=== PATIENT | male | born 1945 | race African-American/Black ===

== ENCOUNTER 2016-09-03 15:21 | Inpatient (IN) ==
[2016-09-03] MEDS ORDERED: SODIUM CHLORIDE 0.9% 500 ML IV STA (16:20)
--- NOTE | 2016-09-03 16:37 | XRay Report ---
History: Shortness of breath and fever Date: 09/03/2016 Study: Chest x-ray AP portable Comparison exam: Chest x-ray March 30, 2016 There is continued mild cardiomegaly. The mediastinal contours are stable. A left subclavian multiple lead transvenous pacemaker device is generally intact. The pulmonary vasculature is not engorged. The exam was performed in shallow aspiration with some mild subsegmental atelectasis in the lung bases. There is no cici pneumonia or gross pleural effusion. The osseous structures are unchanged. Impression: Mild cardiomegaly. Shallow breath with mild subsegmental atelectasis in the lung bases. No definite acute process compared to the previous study PROCEDURE INTERPRETED AT [facility] DEPARTMENT OF RADIOLOGY Final Report Signed by: Dr. Viviane Luis
--- NOTE | 2016-09-03 17:06 | EKG Report ---
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
[2016-09-03 17:34] LABS: Basophils # 0.1 10*3/uL (0.0-0.2); Basophils % 0.7 % (0.0-0.8); Eosinophils # 0.2 10*3/uL (0.0-0.87); Eosinophils % 2.3 % (0.00-10.9); Hematocrit 32.1 VOL% (42.0-52.0); Hemoglobin 11.1 GM/DL (14.0-18.0); Immature Granulocytes % 0.7 %; Immature Granulocytes Absolute 0.05 #; Lymphocytes # 2.1 10*3/uL (1.4-4.0); Lymphocytes % 28.4 % (21.2-54.2); Mean Corpuscular HGB Conc 34.6 GM/DL (32-36); Mean Corpuscular Hemoglobin 30 PG (27-34); Mean Platelet Volume 11.3 FL (9.6-12.0); Monocytes # 0.8 10*3/uL (0.11-0.8); Monocytes % 10.8 % (1.7-12.7); Neutrophils # 4.1 10*3/uL (1.4-7.4); Neutrophils % 57.1 % (38.7-73.9); Platelet Count 159 T/CUMM (130-400); Red Blood Count 3.69 MC/CUMM (3.8-5.5); Red Cell Distribution Width 12.9 % (9.3-17.3); White Blood Count 7.3 T/CUMM (4-12)
[2016-09-03 17:43] LABS: INR 1.5; PT Patient Result 16.1 SECS
[2016-09-03 18:07] LABS: Albumin 2.1 G/DL (3.4-5.0); Bilirubin,Total 1.3 MG/DL (0.2-1.0); Osmolality,Calculated 300.7 MOS/KG (273-304); Potassium 2.6 MMOL/L (3.5-5.1); Total Protein 7.7 G/DL (6.4-8.3)
--- NOTE | 2016-09-03 18:28 | Emergency Department Note ---
Ruddy Freed Brittany, am scribing for, and in the presence of, Jose Manuel Bosch MD 15:57. Danitza Freed Phillip K, MD, personally performed the services described in this documentation, ascribed by Jaleesa Fox in my presence, and it is both accurate and complete [id number] . Arrival - Arrival Chief Complaint: Weakness ED Nursing Triage Note: c/o weakness x2 days. states that patient has not been eating or drinking good. discharged 2 weeks ago for gastroenteritis. patient also having some abd pain Mode of Arrival: Stretcher Limitations: No Limitations Source: Patient, Family - History of Present Illness HPI Narrative: This is a 71 y/o male,who presents to the ED with c/o weakness which started 2 days ago. His states he has had a decreased PO Intake and low BP. He was D/ C two weeks ago for gastroperesis. She states pt had an upper scope in June and was placed on ABX for "a stomach infection". Pt has no other complaints/ pain in the ED at this time. Pt has a PMHx of NIDDM, HTN, cardiac dysrythmia, GOUT, GERD, gastroperesis, and arthritis. Pt has had a cardiac cath, vascular access device, abd surgery, and orthopedic surgery. Pt denies a family medical Hx. Pt denies a social Hx. Pt's PCP is Dr. Lainez Onset (ago): day(s) (Started 2 days ago) Consistency: constant Severity: moderate Allergies/Adverse Reactions: Allergies Allergy/AdvReac Type Severity Reaction Status Date / Time No Known Allergies Allergy Verified 03/30/16 14:24 Home Medications: Home Medications Medication Instructions Recorded Confirmed Type Cetirizine Tab [ZyrTEC Tab] 10 mg PO BEDTIME 03/30/16 08/10/16 History Entecavir 0.5 mg PO DAILY 03/30/16 08/10/16 History Ezetimibe [Zetia] 10 mg PO BEDTIME 03/30/16 08/10/16 History Febuxostat [Uloric] 80 mg PO BEDTIME 03/30/16 08/10/16 History Insulin Lispro [HumaLOG] See Protocol SUBCUT ACHS ml 04/06/16 08/10/16 Rx Apixaban [Eliquis] 5 mg PO DAILY 08/10/16 08/10/16 History Colchicine 0.6 mg PO DAILY W/BREAKFAST PRN 08/10/16 08/10/16 History Omeprazole 40 mg PO QAM 08/10/16 08/10/16 History Valsartan/Hydrochlorothiazide 1 each PO DAILY 08/10/16 08/10/16 History [Valsartan-Hctz 160-12.5 mg Tab] traMADol TAB [Ultram] 50 mg PO Q6H PRN #20 tablet 08/10/16 Rx Review of System - Review of System 12 point system: reviewed and no additional remarkable complaints except as stated - Review of System Constitutional: Present: weakness, other (Decreased PO Intake) Medical,Surgical,& Family Hx - Medical History Cardio: History of: Cardiac Dysrhythmia, Hypertension Endocrine: History of: Diabetes Mellitus (NIDDM) Rheumatology: History of;: Gout Gastrointestinal: History of: GERD, GI Problems (GASTROPERESIS) Musculoskeletal: History of: Musculoskeletal Problems (arthritis) - Surgical History Cardiac Surgeries: Sugical HX of: Cardiac Catheterization, Vascular Access Devices (pacemaker) Abdominal Surgeries: Surgical HX of: Abdominal Surgery ("colon") Orthopedic Surgeries: Surgical HX of;: Orthopedic Surgery - Family History Family History: Denies;: Family Stroke - Social History Smoking Status: Never smoker Frequency of Alcohol Use: None Type of Drug Use: None Exam Vital Signs: Vital Signs Temperature 98.3 F 09/03/16 15:21 Pulse Rate 87 09/03/16 15:21 Respiratory Rate 17 09/03/16 15:21 Blood Pressure 127/69 09/03/16 15:21 O2 Sat by Pulse Oximetry 98 09/03/16 15:21 - General General appearance: alert, in no apparent distress - Head Head exam: Present: atraumatic, normocephalic, normal inspection - Eye Eye exam: Present: normal appearance, PERRL, EOMI - ENT ENT exam: Present: mucous membranes dry - Neck Neck exam: Present: normal inspection, full ROM, trachea midline. Absent: tenderness - Chest Chest inspection: Present: normal inspection, symmetric chest wall rise. Absent : tenderness, rash, abscess - Respiratory Respiratory exam: Present: normal lung sounds bilaterally. Absent: respiratory distress - Cardiovascular Cardiovascular exam: Present: regular rate, normal rhythm, normal heart sounds - Abdominal Exam Abdominal exam: Present: soft, normal bowel sounds. Absent: distention, tenderness, guarding, rebound, rigidity - Extremities Exam Extremities exam: Present: normal capillary refill, other (Ulcer to the left foot) - Back Exam Back exam: Present: normal inspection, full ROM. Absent: tenderness, muscle spasm, rashes - Neurological Exam Neurological exam: Present: alert, oriented X3, CN II-XII intact. Absent: motor sensory deficit - Psychiatric Psychiatric exam: Present: normal affect, normal mood. Absent: depressed, agitated, anxious, manic - Skin Skin exam: Present: warm, dry, intact, normal color. Absent: rash, cyanosis, diaphoresis, erythema, pallor, mottled Course Course Narrative: Patient discussed with the hospitalist and we will admit for further evaluation. Results - Labs CBC & BMP: 09/03/16 17:01 09/03/16 17:01 Lab Results: I have reviewed the patients labs - EKG EKG results: interpreted by MAIDA (ventricular pacemaker rhythm) - Diagnostic Findings Procedure: Chest x-ray: report reviewed by me (poor inspiration but nothing acute.) Disposition Clinical Impression: Dehydration, Acute on chronic renal failure, Hypokalemia Case discussed with: patient, patient's family Disposition: Still a Patient Condition: Guarded Additional Instructions: Admit to the hospitalist.
[2016-09-03 18:33] LABS: Platelet Estimate Normal
[2016-09-03] MEDS ORDERED: GLUCAGON 1 MG VIAL IM PRN (18:35)
[2016-09-03] MEDS ORDERED: ZALEPLON 5 MG CAPSULE PO PRN (18:35)
[2016-09-03] MEDS ORDERED: DOCUSATE SODIUM 100 MG CAPSULE PO PRN (18:35)
[2016-09-03] MEDS ORDERED: ONDANSETRON 4 MG/2 ML VIAL IV PRN (18:35)
[2016-09-03] MEDS ORDERED: LACTULOSE 20 GM/30 ML UDCUP PO PRN (18:35)
[2016-09-03] MEDS ORDERED: DEXTROSE 50% 25 GM/50 ML VIAL IV PRN (18:35)
--- NOTE | 2016-09-03 19:07 | Hospitalist History & Physical ---
Assessment and Plan - Time spent with patient Time spent with patient: Greater than 30 minutes (due to assessment, plan and documentation.) (1) Acute on chronic renal failure Status: Acute Assessment and plan: hydrate consult nephrology monitored bed Current Visit: Yes (2) Dehydration Status: Acute Current Visit: Yes (3) Hypokalemia Status: Acute Current Visit: Yes (4) Decubital ulcer Status: Acute Current Visit: No Qualifiers: Pressure ulcer stage: stage II Qualified Code(s): L89.92 - Pressure ulcer of unspecified site, stage 2 (5) Gastroparesis Status: Acute Current Visit: No (6) Diabetes mellitus Status: Chronic Current Visit: No Qualifiers: Diabetes mellitus type: type 2 (7) Hypertension Status: Chronic Current Visit: No Qualifiers: Hypertension type: essential hypertension Qualified Code(s): I10 - Essential (primary) hypertension (8) Weakness Status: Chronic Current Visit: No History of Present Illness Chief complaint: weakness History of present illness: Mr. Almanza is a 71 year old male who is brought to the ED today by his for weakness x 2 days. She gives all of the history. She states that he has not had a good appetite the past few days. He has a hx of gastroparesis, but his lack of appetite is worse. mentions that "all he wants to do is sleep" . Denies any nausea or vomiting. He is diabetic. He has a wound to his left foot and a sacral decubitus per his . 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 His potassium is low at 2.6; Creatinine is 5.4 GFR 17. Last recorded labs were normal. states that he does see Dr. Ruiz. We will ask to see while he is here as well. We will admit, replace his potassium and have renal see. Further plan and addendum to follow by Dr. Andreas Bonilla. Home Medications Medication Instructions Recorded Confirmed Type Cetirizine Tab [ZyrTEC Tab] 10 mg PO BEDTIME 03/30/16 08/10/16 History Entecavir 0.5 mg PO DAILY 03/30/16 08/10/16 History Ezetimibe [Zetia] 10 mg PO BEDTIME 03/30/16 08/10/16 History Febuxostat [Uloric] 80 mg PO BEDTIME 03/30/16 08/10/16 History Insulin Lispro [HumaLOG] See Protocol SUBCUT ACHS ml 04/06/16 08/10/16 Rx Apixaban [Eliquis] 5 mg PO DAILY 08/10/16 08/10/16 History Colchicine 0.6 mg PO DAILY W/BREAKFAST PRN 08/10/16 08/10/16 History Omeprazole 40 mg PO QAM 08/10/16 08/10/16 History Valsartan/Hydrochlorothiazide 1 each PO DAILY 08/10/16 08/10/16 History [Valsartan-Hctz 160-12.5 mg Tab] traMADol TAB [Ultram] 50 mg PO Q6H PRN #20 tablet 08/10/16 Rx Allergies Allergy/AdvReac Type Severity Reaction Status Date / Time No Known Allergies Allergy Verified 03/30/16 14:24 Medical,Surgical,& Family Hx - Medical History Cardio: History of: Cardiac Dysrhythmia, Hypertension Endocrine: History of: Diabetes Mellitus (IDDM), Diabetes Mellitus (NIDDM) Rheumatology: History of;: Gout Gastrointestinal: History of: GERD, GI Problems (GASTROPERESIS) Musculoskeletal: History of: Musculoskeletal Problems (arthritis) Other: History of: Miscellaneous Medical Problems (hepatitis B--nondetectable) - Surgical History Cardiac Surgeries: Sugical HX of: Cardiac Catheterization, Vascular Access Devices (pacemaker) Abdominal Surgeries: Surgical HX of: Abdominal Surgery ("colon"), Cholecystectomy Orthopedic Surgeries: Surgical HX of;: Orthopedic Surgery - Family History Family History: Denies;: Family Stroke - Social History Smoking Status: Never smoker Frequency of Alcohol Use: None Type of Drug Use: None Marital Status: Lives With:: Spouse Functional capacity: bed bound ROS unobtainable: due to mental status Exam - Constitutional Vitals: Period Temp Pulse Resp BP Sys/Wick Pulse Ox Last 24 Hr 98.3 F 87 17 127/69 98 General appearance: no acute distress, over weight - Head Head exam: Present: normal inspection, normocephalic - Eye Eye exam: Present: EOMI. Absent: scleral icterus Pupils: Present: TRACEY, normal accommodation - ENT ENT exam: Present: normal exam, normal oropharynx - Neck Neck exam: Present: normal inspection. Absent: lymphadenopathy - Respiratory Respiratory exam: Present: clear to auscultation bilaterally. Absent: wheezes - Cardiovascular Cardiovascular exam: Present: regular rate and rhythm. Absent: carotid bruit - GI/Abdominal GI/Abdominal exam: Present: normal bowel sounds, soft. Absent: tenderness - Extremities Exam Extremities exam: Present: other (wrap to left foot - wound). Absent: edema - Back Exam Back exam: Present: normal inspection. Absent: muscle spasm - Neurological Exam Neurological exam: Present: altered - Psychiatric Psychiatric exam: Present: flat affect - Skin Skin exam: Present: normal color, warm, dry, other (wound to left foot, sacral area. ) Results - Labs CBC & BMP: 09/03/16 17:01 09/03/16 17:01 Lab Results: I have reviewed the past 24 hour labs Quality Measures - VTE Contraindication to Pharmacological VTE Prophylaxis: Already on Theraputic Agent , No Prophylaxis Needed
[2016-09-03] MEDS: INSULIN LISPRO 100 UNIT/ML SUBCUT SCH (21:02)
[2016-09-03] MEDS: SODIUM CHLORIDE 0.9% 1,000 ML IV SCH (21:08)
[2016-09-03] MEDS: POTASSIUM CHLORIDE RIDER 10 MEQ in PREMIX 1 EACH IV SCH (22:57)
[2016-09-04] MEDS: POTASSIUM CHLORIDE RIDER 10 MEQ in PREMIX 1 EACH IV SCH ×5 (01:04→09:58)
[2016-09-04 05:14] LABS: Basophils % 0.6 % (0.0-0.8); Eosinophils # 0.2 10*3/uL (0.0-0.87); Eosinophils % 2.9 % (0.00-10.9); Hematocrit 28.6 VOL% (42.0-52.0); Hemoglobin 9.7 GM/DL (14.0-18.0); Immature Granulocytes % 0.6 %; Immature Granulocytes Absolute 0.04 #; Lymphocytes % 28.2 % (21.2-54.2); Mean Corpuscular HGB Conc 33.9 GM/DL (32-36); Mean Corpuscular Hemoglobin 30 PG (27-34); Mean Corpuscular Volume 87.2 FL (87-102); Mean Platelet Volume 11.3 FL (9.6-12.0); Monocytes # 0.8 10*3/uL (0.11-0.8); Neutrophils # 3.9 10*3/uL (1.4-7.4); Neutrophils % 55.7 % (38.7-73.9); Platelet Count 141 T/CUMM (130-400); Red Blood Count 3.28 MC/CUMM (3.8-5.5); Red Cell Distribution Width 12.7 % (9.3-17.3)
[2016-09-04 05:42] LABS: Eosinophils 3 % (0-10); Lymphocytes 32 % (20-55); Platelet Estimate Normal; Segmented Neutrophils 54 % (50-85); Total Cells Counted 100
[2016-09-04 05:53] LABS: Albumin 1.8 G/DL (3.4-5.0); Bilirubin,Total 1.2 MG/DL (0.2-1.0); Calcium 8.7 MG/DL (8.5-10.1); Osmolality,Calculated 305.4 MOS/KG (273-304); Potassium 2.7 MMOL/L (3.5-5.1); Total Protein 6.8 G/DL (6.4-8.3)
[2016-09-04] MEDS ORDERED: traMADol 50 MG TABLET PO PRN (06:57)
--- NOTE | 2016-09-04 08:58 | Nephrology Consult Note ---
History of Present Illness Chief complaint: increased BUN/creatinine creatinine History of present illness: Mr. Almanza is a 71 year old male who I follow in the outpatient setting for chronic kidney disease. The patient presented to the hospital yesterday for decreased by mouth intake. I saw the patient about 10 days ago in the office at that time his creatinine was 2.6 mg/dL. Review of his labs from the past year have ranged from 1.4 mg/dL to 2 mg/dL. The patient since February 2016 has had a fairly rapid decline in his health status. The patient during that time slowly started to eat less per his . The patient was admitted to the hospital and felt to have diabetic gastroparesis. He was started on Reglan for this and did well for about a week or so but then developed a fairly abrupt change in his mental state as well as his motor function. Since that time the patient has been deteriorating with decreased by mouth intake and increased weight loss and decreased mental function and interactions. The patient does have a history of colon cancer cancer in 2012 with a resection at that time. He was felt to have been cured and did not require any chemotherapy. The patient recently had an upper endoscopy done at [facility] and was found to have what sounds like H. pylori bacterial infection in his stomach and has been getting treatment with antibiotics. The patient has also been getting antibiotics for some blistering in his left foot. 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 The history is taken from the patient's as the patient is unable to contribute to the history due to his medical condition. Review of systems and family history unable be obtained due to patient's medical condition PE: General: in no acute distress Eyes: Pupils are round and reactive, conjunctivae are clear ENT: Nose is clear, O/P is benign Neck: Supple, no thyromegaly Lymphatics: No cervical, supraclavicular or axillary adenopathy Heart: Regular rate and rhythm, no edema Lungs: Clear to auscultation anteriorly, chest expansion symmetric Abdomen: Soft, normoactive bowel sounds, no hepatomegaly Musculoskeletal: No joint erythema or effusions or joint asymmetry Skin: Normal turgor, normal hydration, no rash Neuro/Psych: Alert and cooperative with fair insight Home Medications Medication Instructions Recorded Confirmed Type Cetirizine Tab [ZyrTEC Tab] 10 mg PO BEDTIME 03/30/16 09/03/16 History Entecavir 0.5 mg PO DAILY 03/30/16 09/03/16 History Ezetimibe [Zetia] 10 mg PO BEDTIME 03/30/16 09/03/16 History Febuxostat [Uloric] 80 mg PO BEDTIME 03/30/16 09/03/16 History Insulin Lispro [HumaLOG] See Protocol SUBCUT ACHS ml 04/06/16 09/03/16 Rx Apixaban [Eliquis] 5 mg PO DAILY 08/10/16 09/03/16 History Colchicine 0.6 mg PO DAILY W/BREAKFAST PRN 08/10/16 09/03/16 History Omeprazole 40 mg PO QAM 08/10/16 09/03/16 History traMADol TAB [Ultram] 50 mg PO Q6H PRN #20 tablet 08/10/16 09/03/16 Rx Clarithromycin 500 mg PO BID 09/03/16 09/03/16 History Minocycline [Minocin] 100 mg PO BID 09/03/16 09/03/16 History Allergies Allergy/AdvReac Type Severity Reaction Status Date / Time No Known Allergies Allergy Verified 03/30/16 14:24 Medical,Surgical,& Family Hx - Medical History Cardio: History of: Cardiac Dysrhythmia, Hypertension Endocrine: History of: Diabetes Mellitus (IDDM), Diabetes Mellitus (NIDDM) Rheumatology: History of;: Gout Gastrointestinal: History of: GERD, GI Problems (GASTROPERESIS) Musculoskeletal: History of: Musculoskeletal Problems (arthritis) Other: History of: Miscellaneous Medical Problems (hepatitis B--nondetectable) - Surgical History Cardiac Surgeries: Sugical HX of: Cardiac Catheterization, Vascular Access Devices (pacemaker) Abdominal Surgeries: Surgical HX of: Abdominal Surgery ("colon"), Cholecystectomy Orthopedic Surgeries: Surgical HX of;: Orthopedic Surgery - Family History Family History: Denies;: Family Stroke - Social History Smoking Status: Never smoker Frequency of Alcohol Use: None Type of Drug Use: None Exam - Vital Signs Vital signs: Period Temp Pulse Resp BP Sys/Wick Pulse Ox Last 24 Hr 96.3 F-98.6 F 81-85 16-24 97-108/58-63 97-100 Results - Labs CBC & BMP: 09/04/16 04:09 09/04/16 04:09 Assessment and Plan (1) Acute on chronic renal failure Status: Acute Assessment and plan: I agree with IV fluids as ordered. I mentioned to the patient's that a PEG feeding tube may ultimately be required. Current Visit: Yes (2) History of hypertension Status: Acute Assessment and plan: This patient has been having decreased blood pressure lately per the patient's , she has been holding his Diovan on an diuretic Current Visit: Yes (3) Dehydration Status: Acute Current Visit: Yes (4) Hypokalemia Status: Acute Assessment and plan: Continue IV replacement of potassium Current Visit: Yes (5) Chronic hepatitis B Status: Acute Assessment and plan: Patient is on chronic treatment for this with Baraclude Current Visit: No (6) Gastroparesis Status: Acute Current Visit: No (7) Diabetes mellitus Status: Chronic Current Visit: No Qualifiers: Diabetes mellitus type: type 2 (8) Dementia Status: Acute Assessment and plan: This patient's had a fairly rapid decline in his mental status over the past 8 months or so. 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 I'm not sure if the Reglan would cause such a prolonged dementia after a 10 day exposure as he had 6-8 months ago. Current Visit: Yes (9) Weight loss Status: Acute Assessment and plan: With his history of colon cancer and oriented that he may have a recurrence of this causing some weight loss. However this may be more result of his progressive dementia. I'll review his previous hospitalization for test that may have screened for this. Current Visit: Yes
[2016-09-04] MEDS: INSULIN LISPRO 100 UNIT/ML SUBCUT SCH ×4 (09:05→21:48)
[2016-09-04] MEDS: PANTOPRAZOLE 40 MG TABLET PO SCH (09:09)
[2016-09-04] MEDS: APIXABAN 5 MG TABLET PO SCH (09:09)
[2016-09-04] MEDS: CLARITHROMYCIN 500 MG TABLET PO SCH ×2 (09:11→21:47)
[2016-09-04] MEDS: SODIUM CHLORIDE 0.9% 1,000 ML IV SCH ×2 (09:58→17:20)
--- NOTE | 2016-09-04 10:54 | Hospitalist Progress Note ---
Assessment and Plan (1) Acute on chronic renal failure Status: Acute Assessment and plan: Mr. Almanza is admitted to the hospital with acute worsening of chronic renal failure. He has flat affect and apparent brain injury consistent with postconcussive syndrome. The patient seemingly worsened after being treated for H. pylori infection. We will continue with IV hydration and have requested a consultation with Dr. Ruiz and with Dr. Duran. I reviewed the plan of care with the patient's at the bedside. Current Visit: Yes (2) Diabetes mellitus Status: Chronic Current Visit: No Qualifiers: Diabetes mellitus type: type 2 (3) Chronic kidney disease Status: Chronic Current Visit: No (4) Chronic hepatitis B Status: Acute Current Visit: No (5) Dementia Status: Acute Current Visit: Yes (6) Weight loss Status: Acute Current Visit: Yes Hospitalist: Subjective Interval history: Mr. Almanza remains mute today. He has taken a few liquids but not enough to sustain himself. The patient continues on hydration. Creatinine is still elevated above his baseline of 2.6. Exam - Constitutional Vitals: Period Temp Pulse Resp BP Sys/Wick Pulse Ox Last 24 Hr 96.3 F-98.6 F 81-85 16-24 97-108/58-63 97-100 Exam: Constitutional System: Mild distress. No tremulousness. The patient is diaphoretic Head: Normocephalic, atraumatic. Ears, Nose and Throat System: No evidence of Otitis or Mastoiditis. No epistaxis or discharge Eyes System: Pupils equal, round, and reactive. Extraocular muscles intact. Neck: Supple, without adenopathy, No jugular venous distention. No thyromegaly , neck mass, or prior surgery apparent. Respiratory System: Chest clear to auscultation. Cardiovascular System: Heart with regular rate and rhythm. No murmur. GI System: Abdomen soft, nontender. Normoactive bowel sounds present. Musculoskeletal System: limbs with no pedal edema. Decreased distal pulses. Wound on left foot Neurological System: No discernable sensory deficit. Psychiatric System: Conversation is mute Results - Labs CBC & BMP: 09/04/16 04:09 09/04/16 04:09 Lab Results: I have reviewed the past 24 hour labs Quality Measures - VTE Contraindication to Pharmacological VTE Prophylaxis: Already on Theraputic Agent , No Prophylaxis Needed
[2016-09-04] MEDS: DESITIN 4OZ/NYSTATIN 15 GRAM MIXTURE PASTE TOP SCH ×2 (13:55→21:47)
--- NOTE | 2016-09-04 15:11 | Gastrointestinal Consult Note ---
Assessment and Plan (1) Malnutrition Status: Acute Assessment and plan: Progressive decline in mental function resulting in poor p.o. intake and malnutrition. This is most recently culminated in severe dehydration and renal insufficiency. I have discussed with the patient's family that at this point will continue with IV hydration and see how his mental status improves and if possible repeat speech therapy evaluation next week to see if we can tell his risk of aspiration. Potential need for PEG tube placement has been discussed with her started this and make can be more problematic in the face of gastroparesis but often with the use of liquids nutrition done in continuous fashion he should be able to tolerate this. Hopefully his mental status will improve with hydration to the point this is not required. I will check back on Wednesday call coverage if needed over the weekend. Current Visit: Yes History of Present Illness Chief complaint: A aphasia with dehydration and malnutrition History of present illness: Mr. Almanza is a 71 year old male He was admitted with progressive decline in mental status with acute dehydration and worsening of renal insufficiency. Patient's states for the past several months he has had decreased oral intake. He apparently was noted to have some difficulty swallowing a few weeks ago he was seen at [facility] where he had reportedly a speech therapy evaluation was told it was normal and an upper endoscopy done with findings of H. pylori. Initiation of therapy with antibiotics were started. No report of any stricture was mentioned. He has had no history to suggest intestinal obstruction. He has previously been diagnosed with gastroparesis and initial trial of Reglan was not tolerated due to mental status changes and this was discontinued several months ago. We are asked to see him now regarding his loss of appetite difficulty swallowing with resulting dehydration and malnutrition. Home Medications Medication Instructions Recorded Confirmed Type Cetirizine Tab [ZyrTEC Tab] 10 mg PO BEDTIME 03/30/16 09/03/16 History Entecavir 0.5 mg PO DAILY 03/30/16 09/03/16 History Ezetimibe [Zetia] 10 mg PO BEDTIME 03/30/16 09/03/16 History Febuxostat [Uloric] 80 mg PO BEDTIME 03/30/16 09/03/16 History Insulin Lispro [HumaLOG] See Protocol SUBCUT ACHS ml 04/06/16 09/03/16 Rx Apixaban [Eliquis] 5 mg PO DAILY 08/10/16 09/03/16 History Colchicine 0.6 mg PO DAILY W/BREAKFAST PRN 08/10/16 09/03/16 History Omeprazole 40 mg PO QAM 08/10/16 09/03/16 History traMADol TAB [Ultram] 50 mg PO Q6H PRN #20 tablet 08/10/16 09/03/16 Rx Clarithromycin 500 mg PO BID 09/03/16 09/03/16 History Minocycline [Minocin] 100 mg PO BID 09/03/16 09/03/16 History Allergies Allergy/AdvReac Type Severity Reaction Status Date / Time No Known Allergies Allergy Verified 03/30/16 14:24 Medical,Surgical,& Family Hx - Medical History Cardio: History of: Cardiac Dysrhythmia, Hypertension Endocrine: History of: Diabetes Mellitus (IDDM), Diabetes Mellitus (NIDDM) Rheumatology: History of;: Gout Gastrointestinal: History of: GERD, GI Problems (GASTROPERESIS) Musculoskeletal: History of: Musculoskeletal Problems (arthritis) Other: History of: Miscellaneous Medical Problems (hepatitis B--nondetectable) - Surgical History Cardiac Surgeries: Sugical HX of: Cardiac Catheterization, Vascular Access Devices (pacemaker) Abdominal Surgeries: Surgical HX of: Abdominal Surgery ("colon"), Cholecystectomy Orthopedic Surgeries: Surgical HX of;: Orthopedic Surgery - Family History Family History: Denies;: Family Stroke - Social History Smoking Status: Never smoker Frequency of Alcohol Use: None Type of Drug Use: None ROS unobtainable: due to mental status Exam - Constitutional Vitals: Period Temp Pulse Resp BP Sys/Wick Pulse Ox Last 24 Hr 96.3 F-98.6 F 81-85 16-24 97-110/50-63 94-100 General appearance: normal weight, no acute distress - Head Head exam: Present: normal inspection, normocephalic, atraumatic - Eye Eye exam: Present: EOMI. Absent: conjunctival injection, scleral icterus Pupils: Present: TRACEY. Absent: dilated - ENT ENT exam: Present: normal oropharynx - Neck Neck exam: Absent: lymphadenopathy, thyromegaly - Respiratory Respiratory exam: Present: clear to auscultation bilaterally. Absent: accessory muscle use, rales - Cardiovascular Cardiovascular exam: Present: regular rate and rhythm. Absent: systolic murmur - GI/Abdominal GI/Abdominal exam: Present: soft. Absent: ascites, distended, mass, tenderness - Extremities Exam Extremities exam: Absent: edema - Neurological Exam Neurological exam: Present: other (Noncommunicative and will not follow commands ) - Skin Skin exam: Present: warm, dry Results - Labs CBC & BMP: 09/04/16 04:09 09/04/16 04:09 Lab Results: I have reviewed the past 24 hour labs Quality Measures - VTE Contraindication to Pharmacological VTE Prophylaxis: Already on Theraputic Agent , No Prophylaxis Needed
[2016-09-04] MEDS: FEBUXOSTAT 80 MG TABLET PO SCH (21:47)
[2016-09-05] MEDS: SODIUM CHLORIDE 0.9% 1,000 ML IV SCH ×4 (00:49→11:46)
[2016-09-05 05:06] LABS: Basophils % 0.6 % (0.0-0.8); Eosinophils # 0.3 10*3/uL (0.0-0.87); Eosinophils % 4.2 % (0.00-10.9); Hematocrit 26.4 VOL% (42.0-52.0); Hemoglobin 9.4 GM/DL (14.0-18.0); Immature Granulocytes % 0.3 %; Immature Granulocytes Absolute 0.02 #; Lymphocytes # 1.4 10*3/uL (1.4-4.0); Lymphocytes % 21.7 % (21.2-54.2); Mean Corpuscular HGB Conc 35.6 GM/DL (32-36); Mean Corpuscular Hemoglobin 30 PG (27-34); Mean Corpuscular Volume 85.2 FL (87-102); Mean Platelet Volume 11.8 FL (9.6-12.0); Monocytes # 0.7 10*3/uL (0.11-0.8); Monocytes % 10.9 % (1.7-12.7); Neutrophils % 62.3 % (38.7-73.9); Platelet Count 128 T/CUMM (130-400); Red Cell Distribution Width 13.3 % (9.3-17.3); White Blood Count 6.5 T/CUMM (4-12)
[2016-09-05 05:32] LABS: Albumin 1.7 G/DL (3.4-5.0); Bilirubin,Total 1.7 MG/DL (0.2-1.0); Calcium 8.1 MG/DL (8.5-10.1); Potassium 2.9 MMOL/L (3.5-5.1); Total Protein 6.1 G/DL (6.4-8.3)
[2016-09-05 05:50] LABS: Platelet Estimate Normal
[2016-09-05] MEDS: CLARITHROMYCIN 500 MG TABLET PO SCH (09:05)
[2016-09-05] MEDS: APIXABAN 5 MG TABLET PO SCH (09:05)
[2016-09-05] MEDS: INSULIN LISPRO 100 UNIT/ML SUBCUT SCH ×4 (09:05→20:51)
[2016-09-05] MEDS: PANTOPRAZOLE 40 MG TABLET PO SCH (09:07)
[2016-09-05] MEDS: DESITIN 4OZ/NYSTATIN 15 GRAM MIXTURE PASTE TOP SCH ×2 (09:07→20:42)
[2016-09-05] MEDS ORDERED: POTASSIUM CHLORIDE RIDER 10 MEQ in PREMIX 1 EACH IV PRN (09:25)
--- NOTE | 2016-09-05 10:01 | Hospitalist Progress Note ---
Assessment and Plan (1) Acute worsening of stage 3 chronic kidney disease Status: Acute Current Visit: Yes (2) Decubitus ulcer of sacral region, unstageable Status: Acute Current Visit: Yes (3) Decubitus ulcer, heel, left, unstageable Status: Acute Current Visit: Yes (4) Dementia Status: Acute Current Visit: Yes (5) Protein-calorie malnutrition, mild Status: Acute Current Visit: Yes (6) Deep venous thrombosis of right upper extremity Status: Acute Current Visit: Yes (7) Functional quadriplegia Status: Acute Current Visit: Yes (8) Chronic hepatitis B Status: Acute Assessment and plan: Plan: 09/05: Check blood and urine cultures, as the reports a recent UTI as well as problems with urinary retention in the past. May be worth checking a renal ultrasound. We'll hold his Eliquis in anticipation of possible PEG tube next week. We'll consult surgery regarding his left heel wound and sacral decubitus wound. Once he is more awake weakness swallow study, if he is able to fully participate. Continue hydration and follow renal function, slightly improved from yesterday. Current Visit: No Hospitalist: Subjective Interval history: Mr. Almanza continues to be lethargic but arousable. According to his who provides all the history he is "not that much different over the last few days." She states last time he was ambulating with a walker was in March and since then he's had physical and cognitive decline such that he is now bedbound and dependent on transfers. He appears to have a left heel decubitus ulcer as well as a sacral decubitus ulcer and apparently is being followed by Dr. Martinez from [place] according to the . She states he had a recent UTI, no fever no nausea or vomiting. He is able to take some liquids and ensure without difficulty. Exam - Constitutional Vitals: Period Temp Pulse Resp BP Sys/Wick Pulse Ox Last 24 Hr 97.4 F-99.0 F 82-87 16-24 94-110/50-61 93-100 Exam: EXAM: CONSTITUTIONAL: Chronically ill-appearing, non toxic, NAD HEENT: NC, AT, OP benign, TRACEY, EOMI CV: RRR no m/g/r, device pocket benign RESP: clear B/L, no w/r/r GI: abd soft, NT, ND, +bowel sounds INTEGUMENTARY: no rash; unstageable sacral decubitus ulcer with scant drainage and surrounding mild macerated red tissue EXTREMITIES: Left lower extremity heel ulcer with large black eschar weak pedal pulses NEURO: no focal deficits PSYCH: Consistent with baseline dementia Results - Labs CBC & BMP: 09/05/16 03:40 09/05/16 03:40 Lab Results: I have reviewed the past 24 hour labs Quality Measures - VTE Contraindication to Pharmacological VTE Prophylaxis: Already on Theraputic Agent , No Prophylaxis Needed
--- NOTE | 2016-09-05 10:25 | Nephrology Progress Note ---
Nephrology - PN: Subj Interval history: Patient was nonverbal with me today. Physical exam general patient's chronically ill-appearing, heart is regular rate and rhythm, he has no pitting edema Lungs are clear to auscultation anteriorly, abdomen is soft with positive bowel sounds Assessment/plan 1. Acute renal failure-patient's creatinine is 5.1 mg/dL this is improved from around 5.4 mg/dL yesterday we'll continue his IV fluids 2. Malnutrition-patient's albumins around 1.7, hopefully as we rehydrate him he 'll start to eat better however he may ultimately require a PEG tube as outlined in Dr. Duran's note 3. Diabetes mellitus we'll continue his present hypoglycemic therapy 4. Dementia 5. Anemia 6. Metabolic acidosis I'm going to add some bicarbonate to his IV fluids 7. Hypokalemia I'm going to add some potassium to his IV fluids. Exam (PN)-Nephrology - Vital Signs Vital signs: Period Temp Pulse Resp BP Sys/Wick Pulse Ox Last 24 Hr 97.4 F-99.0 F 82-87 16-24 94-110/50-61 93-100 - Lab 09/05/16 03:40 09/05/16 03:40 Most recent lab results Calcium 8.1 MG/DL (8.5-10.1) L 09/05/16 03:40 Assessment and Plan (1) Acute on chronic renal failure Status: Acute Assessment and plan: I agree with IV fluids as ordered. I mentioned to the patient's that a PEG feeding tube may ultimately be required. Current Visit: Yes (2) History of hypertension Status: Acute Assessment and plan: This patient has been having decreased blood pressure lately per the patient's , she has been holding his Diovan on an diuretic Current Visit: Yes (3) Dehydration Status: Acute Current Visit: Yes (4) Hypokalemia Status: Acute Assessment and plan: Continue IV replacement of potassium Current Visit: Yes (5) Chronic hepatitis B Status: Acute Assessment and plan: Patient is on chronic treatment for this with Baraclude Current Visit: No (6) Gastroparesis Status: Acute Current Visit: No (7) Diabetes mellitus Status: Chronic Current Visit: No Qualifiers: Diabetes mellitus type: type 2 (8) Dementia Status: Acute Assessment and plan: This patient's had a fairly rapid decline in his mental status over the past 8 months or so. He apparently saw a neurologist in [place] related to the dementia is seen in [employer]. I'm not sure if the Reglan would cause such a prolonged dementia after a 10 day exposure as he had 6-8 months ago. Current Visit: Yes (9) Weight loss Status: Acute Assessment and plan: With his history of colon cancer and oriented that he may have a recurrence of this causing some weight loss. However this may be more result of his progressive dementia. I'll review his previous hospitalization for test that may have screened for this. Current Visit: Yes
[2016-09-05] MEDS: PANTOPRAZOLE 40 MG VIAL IV SCH (11:33)
[2016-09-05] MEDS: SODIUM BICARB INJ 50 MEQ, POTASSIUM CHLORIDE INJ 20 MEQ in SODIUM CHLORIDE 0.45% 1,000 ML IV SCH ×3 (11:52→20:42)
--- NOTE | 2016-09-05 14:35 | General Surgery Consult Note ---
Assessment and Plan (1) Diabetic foot infection Status: Acute Assessment and plan: Impression: Left lower extremity diabetic ulcers, pressure decubitus ulcer, and diabetic infection the left second toe. Plan: The left second toe is obviously infected and unsalvageable. I have recommended amputation in the operating room. At the same time we could debride his other ulcers as they're not going to heal with all of the nonviable tissue currently present. The is going to think about it and let us know in the morning. Current Visit: Yes History of Present Illness Chief complaint: consult for ulcers History of present illness: Mr. Almanza is a 71 year old male admitted with dehydration and lethargy. I have been consult did to evaluate his left lower extremity and sacral ulcers. History obtained from the patient's . She states they are under the care of Dr. Martinez at [facility]. They saw him last week and according to her he told them to keep the areas clean. Home Medications Medication Instructions Recorded Confirmed Type Cetirizine Tab [ZyrTEC Tab] 10 mg PO BEDTIME 03/30/16 09/03/16 History Entecavir 0.5 mg PO DAILY 03/30/16 09/03/16 History Ezetimibe [Zetia] 10 mg PO BEDTIME 03/30/16 09/03/16 History Febuxostat [Uloric] 80 mg PO BEDTIME 03/30/16 09/03/16 History Insulin Lispro [HumaLOG] See Protocol SUBCUT ACHS ml 04/06/16 09/03/16 Rx Apixaban [Eliquis] 5 mg PO DAILY 08/10/16 09/03/16 History Colchicine 0.6 mg PO DAILY W/BREAKFAST PRN 08/10/16 09/03/16 History Omeprazole 40 mg PO QAM 08/10/16 09/03/16 History traMADol TAB [Ultram] 50 mg PO Q6H PRN #20 tablet 08/10/16 09/03/16 Rx Clarithromycin 500 mg PO BID 09/03/16 09/03/16 History Minocycline [Minocin] 100 mg PO BID 09/03/16 09/03/16 History Allergies Allergy/AdvReac Type Severity Reaction Status Date / Time No Known Allergies Allergy Verified 03/30/16 14:24 Medical,Surgical,& Family Hx - Medical History Cardio: History of: Cardiac Dysrhythmia, Hypertension Endocrine: History of: Diabetes Mellitus (IDDM), Diabetes Mellitus (NIDDM) Rheumatology: History of;: Gout Gastrointestinal: History of: GERD, GI Problems (GASTROPERESIS) Musculoskeletal: History of: Musculoskeletal Problems (arthritis) Other: History of: Miscellaneous Medical Problems (hepatitis B--nondetectable) - Surgical History Cardiac Surgeries: Sugical HX of: Cardiac Catheterization, Vascular Access Devices (pacemaker) Abdominal Surgeries: Surgical HX of: Abdominal Surgery ("colon"), Cholecystectomy Orthopedic Surgeries: Surgical HX of;: Orthopedic Surgery - Family History Family History: Denies;: Family Stroke - Social History Smoking Status: Never smoker Frequency of Alcohol Use: None Type of Drug Use: None ROS unobtainable: due to mental status Exam - Constitutional Vitals: Period Temp Pulse Resp BP Sys/Wick Pulse Ox Last 24 Hr 97.4 F-99.0 F 82-87 16-24 94-107/55-61 93-100 General appearance: no acute distress - Respiratory Respiratory exam: Present: clear to auscultation bilaterally - Cardiovascular Cardiovascular exam: Present: RRR - Extremities Exam Extremities exam: Present: other (sacral ulcer small and appears clean. I don' t see any significant nonviable tissue. There are multiple ulcers on the left lower extremity and left foot. They all contained necrotic eschar and nonviable tissue. The left second toe appears ischemic with purulence draining from the anterior surface. This digit appears unsalvageable. The foot is otherwise warm.) Quality Measures - VTE Contraindication to Pharmacological VTE Prophylaxis: Already on Theraputic Agent , No Prophylaxis Needed Results - Labs CBC & BMP: 09/05/16 03:40 09/05/16 03:40
--- NOTE | 2016-09-05 18:02 | Ultrasound Report ---
US renal Bilateral Indication: Acute on chronic kidney disease, possible obstruction. Comparison: None. Technique: Multiple longitudinal and transverse real-time sonographic images of the kidneys were obtained. Findings: The right kidney measures 11.9 x 4.2 x 6.2 cm, and the left kidney measures 11.4 x 5.1 x 6.1 cm. There is no evidence of nephrolithiasis or abnormal perinephric fluid collections. Renal cortical echogenicity is mildly increased. The cortical thickness remains within normal limits. There is no hydronephrosis. There is no evidence of surrounding ascites. Ultrasound images were captured and stored. IMPRESSION: Findings suggestive of mild medical renal disease. No hydronephrosis. PROCEDURE INTERPRETED AT [facility] DEPARTMENT OF RADIOLOGY Final Report Signed by: Lázaro Molina
[2016-09-05] MEDS: FEBUXOSTAT 80 MG TABLET PO SCH (20:42)
[2016-09-06] MEDS: SODIUM BICARB INJ 50 MEQ, POTASSIUM CHLORIDE INJ 20 MEQ in SODIUM CHLORIDE 0.45% 1,000 ML IV SCH (03:25)
[2016-09-06 04:40] LABS: Basophils % 0.5 % (0.0-0.8); Eosinophils # 0.2 10*3/uL (0.0-0.87); Hematocrit 24.5 VOL% (42.0-52.0); Hemoglobin 8.5 GM/DL (14.0-18.0); Immature Granulocytes % 0.3 %; Immature Granulocytes Absolute 0.02 #; Lymphocytes # 1.7 10*3/uL (1.4-4.0); Lymphocytes % 25.8 % (21.2-54.2); Mean Corpuscular HGB Conc 34.7 GM/DL (32-36); Mean Corpuscular Hemoglobin 30 PG (27-34); Mean Corpuscular Volume 85.1 FL (87-102); Mean Platelet Volume 11.7 FL (9.6-12.0); Monocytes # 0.6 10*3/uL (0.11-0.8); Monocytes % 9.2 % (1.7-12.7); Neutrophils # 3.9 10*3/uL (1.4-7.4); Neutrophils % 61.2 % (38.7-73.9); Platelet Count 102 T/CUMM (130-400); Red Blood Count 2.88 MC/CUMM (3.8-5.5); Red Cell Distribution Width 13.3 % (9.3-17.3); White Blood Count 6.4 T/CUMM (4-12)
[2016-09-06 04:57] LABS: Albumin 1.6 G/DL (3.4-5.0); Bilirubin,Total 1.1 MG/DL (0.2-1.0); Calcium 7.9 MG/DL (8.5-10.1); Osmolality,Calculated 310.8 MOS/KG (273-304); Total Protein 6.1 G/DL (6.4-8.3)
[2016-09-06 05:46] LABS: Band Neutrophils 1 % (0-10); Eosinophils 1 % (0-10); Lymphocytes 22 % (20-55); Platelet Estimate Adequate; Segmented Neutrophils 70 % (50-85); Total Cells Counted 100
[2016-09-06] MEDS ORDERED: MAGNESIUM SULF RIDER 4 GM in PREMIX 1 EACH IV PRN (06:43)
[2016-09-06] MEDS ORDERED: SODIUM CHLORIDE 0.9% 250 ML IV PRN (06:45)
[2016-09-06] MEDS: PANTOPRAZOLE 40 MG VIAL IV SCH (08:46)
[2016-09-06] MEDS: INSULIN LISPRO 100 UNIT/ML SUBCUT SCH ×4 (08:47→21:09)
[2016-09-06] MEDS: DESITIN 4OZ/NYSTATIN 15 GRAM MIXTURE PASTE TOP SCH ×2 (08:47→21:09)
--- NOTE | 2016-09-06 09:28 | Nephrology Progress Note ---
Nephrology - PN: Subj Interval history: Patient appears a little brighter today and interacted verbally with me. Physical exam general patient's chronically ill-appearing, heart is regular rate and rhythm, he has no pitting edema, lungs are clear to auscultation anteriorly, abdomen is soft with positive bowel sounds Assessment/plan 1. Acute renal failure-this patient's creatinines improved today to around 4.5 mg/dL, he had a Conley catheter placed yesterday and was noted to have 437 mL of residual urine on a bladder scan prior to his Conley placement. We'll continue IV fluids, I'll asked Dr. Salgado to see him in consultation who has seen him previously. 2. Dementia 3. Diabetes mellitus is controlled 4. Volume depletion-we'll continue IV fluids 5. Anemia-patient's hematocrits around 25% we'll continue monitor this 6. Toe gangrene-patient was seen by general surgery yesterday and it is felt he may need a amputation of this toe. Exam (PN)-Nephrology - Vital Signs Vital signs: Period Temp Pulse Resp BP Sys/Wick Pulse Ox Last 24 Hr 97.9 F-9709 F 81-87 16-22 98-136/55-68 96-98 - Lab 09/06/16 03:46 09/06/16 03:46 Most recent lab results Calcium 7.9 MG/DL (8.5-10.1) L 09/06/16 03:46 Magnesium 1.7 MG/DL (1.8-2.4) L 09/06/16 03:46 Assessment and Plan (1) Acute on chronic renal failure Status: Acute Assessment and plan: I agree with IV fluids as ordered. I mentioned to the patient's that a PEG feeding tube may ultimately be required. Current Visit: Yes (2) History of hypertension Status: Acute Assessment and plan: This patient has been having decreased blood pressure lately per the patient's , she has been holding his Diovan on an diuretic Current Visit: Yes (3) Dehydration Status: Acute Current Visit: Yes (4) Hypokalemia Status: Acute Assessment and plan: Continue IV replacement of potassium Current Visit: Yes (5) Chronic hepatitis B Status: Acute Assessment and plan: Patient is on chronic treatment for this with Baraclude Current Visit: No (6) Gastroparesis Status: Acute Current Visit: No (7) Diabetes mellitus Status: Chronic Current Visit: No Qualifiers: Diabetes mellitus type: type 2 (8) Dementia Status: Acute Assessment and plan: This patient's had a fairly rapid decline in his mental status over the past 8 months or so. He apparently saw a neurologist in [place] related to the dementia is seen in [employer]. I'm not sure if the Reglan would cause such a prolonged dementia after a 10 day exposure as he had 6-8 months ago. Current Visit: Yes (9) Weight loss Status: Acute Assessment and plan: With his history of colon cancer and oriented that he may have a recurrence of this causing some weight loss. However this may be more result of his progressive dementia. I'll review his previous hospitalization for test that may have screened for this. Current Visit: Yes
--- NOTE | 2016-09-06 10:49 | Urology Consultation ---
History of Present Illness - Data of Consult Consult date: 09/06/16 - Consult Narrative History of present illness: Mr. Almanza is a 71 year old male This 71-year-old black male seen in consultation because of an elevated residual urine. The history is obtained from the patient's . I'll see the patient in the office for prostate screening and I don't have access to those records at this time. He has a Conley catheter in with an elevated residual urine and he has an elevated creatinine with no evidence of hydronephrosis on renal ultrasound. His urine culture is negative at 24 hours. The patient's said the patient has had some hesitancy and nocturia and he may have underlying BPH. Recommend we start medical management for BPH check a PSA and give him a trial of voiding in a few days CC: Andreas Bonilla MD - Home Medications and Allergies Home Medications: Home Medications Medication Instructions Recorded Confirmed Type Cetirizine Tab [ZyrTEC Tab] 10 mg PO BEDTIME 03/30/16 09/03/16 History Entecavir 0.5 mg PO DAILY 03/30/16 09/03/16 History Ezetimibe [Zetia] 10 mg PO BEDTIME 03/30/16 09/03/16 History Febuxostat [Uloric] 80 mg PO BEDTIME 03/30/16 09/03/16 History Insulin Lispro [HumaLOG] See Protocol SUBCUT ACHS ml 04/06/16 09/03/16 Rx Apixaban [Eliquis] 5 mg PO DAILY 08/10/16 09/03/16 History Colchicine 0.6 mg PO DAILY W/BREAKFAST PRN 08/10/16 09/03/16 History Omeprazole 40 mg PO QAM 08/10/16 09/03/16 History traMADol TAB [Ultram] 50 mg PO Q6H PRN #20 tablet 08/10/16 09/03/16 Rx Clarithromycin 500 mg PO BID 09/03/16 09/03/16 History Minocycline [Minocin] 100 mg PO BID 09/03/16 09/03/16 History Allergies/Adverse Reactions: Allergies Allergy/AdvReac Type Severity Reaction Status Date / Time No Known Allergies Allergy Verified 03/30/16 14:24 Exam - Constitutional Vitals: Period Temp Pulse Resp BP Sys/Wick Pulse Ox Last 24 Hr 97.9 F-9709 F 81-87 16-22 98-136/55-82 96-98 Results - Labs CBC & BMP: 09/06/16 03:46 09/06/16 03:46
[2016-09-06] MEDS: POTASSIUM CHLORIDE INJ 20 MEQ in SODIUM CHLORIDE 0.45% 1,000 ML IV SCH ×3 (11:39→21:39)
[2016-09-06] MEDS: TAMSULOSIN 0.4 MG CAPSULE PO SCH (11:39)
[2016-09-06] MEDS: FINASTERIDE 5 MG TABLET PO SCH (11:39)
[2016-09-06] MEDS: MAGNESIUM SULF RIDER 2 GM in PREMIX 1 EACH IV PRN (11:45)
--- NOTE | 2016-09-06 12:56 | General Surgery Progress Note ---
Assessment and Plan (1) Diabetic foot infection Status: Acute Assessment and plan: Impression: Left lower extremity diabetic ulcers, pressure decubitus ulcer, and diabetic infection the left second toe. Plan: I will offered amputation of the ischemic and infected left second toe with debridement of the left lower extremity ulcers in the operating room. Patient's states that she thinks he is too weak and anemic to undergo surgery. She has requested that Dr. Gallo take over the patient's care tomorrow. We'll consult Dr. Gallo. Current Visit: Yes Subjective Narrative: No significant changes per the patient's Exam - Constitutional Vitals: Period Temp Pulse Resp BP Sys/Wick Pulse Ox Last 24 Hr 98.3 F-9709 F 78-87 16-22 100-136/55-82 96-98 General appearance: no acute distress - Respiratory Respiratory exam: Present: clear to auscultation bilaterally - Cardiovascular Cardiovascular exam: Present: RRR - GI/Abdominal GI/Abdominal exam: Present: soft - Extremities Exam Extremities exam: Present: other (no changes) Results - Labs CBC & BMP: 09/06/16 03:46 09/06/16 03:46 Lab Results: I have reviewed the past 24 hour labs Quality Measures - VTE Contraindication to Pharmacological VTE Prophylaxis: Already on Theraputic Agent , No Prophylaxis Needed
--- NOTE | 2016-09-06 13:35 | Hospitalist Progress Note ---
Assessment and Plan (1) Acute worsening of stage 3 chronic kidney disease Status: Acute Current Visit: Yes (2) Decubitus ulcer of sacral region, unstageable Status: Acute Current Visit: Yes (3) Decubitus ulcer, heel, left, unstageable Status: Acute Current Visit: Yes (4) Dementia Status: Acute Current Visit: Yes (5) Protein-calorie malnutrition, mild Status: Acute Current Visit: Yes (6) Deep venous thrombosis of right upper extremity Status: Acute Current Visit: Yes (7) Functional quadriplegia Status: Acute Current Visit: Yes (8) Urinary retention Status: Acute Current Visit: Yes (9) Anemia of chronic disease Status: Acute Current Visit: Yes (10) Chronic hepatitis B Status: Acute Assessment and plan: Plan: 09/05: Check blood and urine cultures, as the reports a recent UTI as well as problems with urinary retention in the past. May be worth checking a renal ultrasound. We'll hold his Eliquis in anticipation of possible PEG tube next week. We'll consult surgery regarding his left heel wound and sacral decubitus wound. Once he is more awake weakness swallow study, if he is able to fully participate. Continue hydration and follow renal function, slightly improved from yesterday. 09/06: Better urine output after Conley placement. Renal function slightly better today. Renal ultrasound negative for [place]. He required blood transfusion today. This far we haven't seen any cici GI/ blood loss, we'll check stool Hemoccult. Certainly anticoagulants and/or underlying chronic kidney disease could be contributing to his anemia. We'll consult Dr. Gallo for his sacral wound and left heel and ischemic second toe, per family preference. Current Visit: No Hospitalist: Subjective Interval history: Mr. Almanza is more responsive to me today. He denies any complaints such as shortness of breath chest pain or abdominal pain. His is at the bedside who states that he has been taking in liquids as well as some ensure. They have asked to see Dr. Gallo for surgical recommendations regarding his sacral decubitus wound and left foot wound/ischemic second toe. I was notified by his nurse yesterday that he had significant urinary retention so we decided to place a Conley catheter and he's had decent urine output since that time. Renal function slowly improving. He was seen by urology yesterday, started on Flomax and finasteride. Exam - Constitutional Vitals: Period Temp Pulse Resp BP Sys/Wick Pulse Ox Last 24 Hr 98.3 F-9709 F 78-87 16-22 100-136/55-82 96-98 Exam: EXAM: CONSTITUTIONAL: Chronically ill-appearing, non toxic, NAD HEENT: NC, AT, OP benign, TRACEY, EOMI CV: RRR no m/g/r, device pocket benign RESP: clear B/L, no w/r/r GI: abd soft, NT, ND, +bowel sounds INTEGUMENTARY: no rash; unstageable sacral decubitus ulcer with scant drainage and surrounding mild macerated red tissue EXTREMITIES: Left lower extremity heel ulcer with large black eschar weak pedal pulses, ischemic left second toe NEURO: no focal deficits PSYCH: Consistent with reported baseline dementia, we'll arouse to command, answer basic yes or no questions otherwise not much more participation with the exam, according to the this has been a long-standing, progressive issue. Results - Labs CBC & BMP: 09/06/16 03:46 09/06/16 03:46 Lab Results: I have reviewed the past 24 hour labs Quality Measures - VTE Contraindication to Pharmacological VTE Prophylaxis: Already on Theraputic Agent , No Prophylaxis Needed
[2016-09-06] MEDS: FEBUXOSTAT 80 MG TABLET PO SCH (21:08)
[2016-09-07] MEDS: POTASSIUM CHLORIDE INJ 20 MEQ in SODIUM CHLORIDE 0.45% 1,000 ML IV SCH ×5 (02:40→23:44)
[2016-09-07 05:54] LABS: Basophils # 0.1 10*3/uL (0.0-0.2); Basophils % 0.9 % (0.0-0.8); Eosinophils # 0.1 10*3/uL (0.0-0.87); Eosinophils % 2.1 % (0.00-10.9); Hematocrit 30.5 VOL% (42.0-52.0); Hemoglobin 10.2 GM/DL (14.0-18.0); Immature Granulocytes % 0.5 %; Immature Granulocytes Absolute 0.03 #; Lymphocytes # 1.8 10*3/uL (1.4-4.0); Lymphocytes % 30.3 % (21.2-54.2); Mean Corpuscular HGB Conc 33.4 GM/DL (32-36); Mean Corpuscular Hemoglobin 29 PG (27-34); Mean Corpuscular Volume 86.2 FL (87-102); Mean Platelet Volume 12.3 FL (9.6-12.0); Monocytes # 0.6 10*3/uL (0.11-0.8); Monocytes % 10.6 % (1.7-12.7); Neutrophils # 3.3 10*3/uL (1.4-7.4); Neutrophils % 55.6 % (38.7-73.9); Platelet Count 79 T/CUMM (130-400); Red Blood Count 3.54 MC/CUMM (3.8-5.5); White Blood Count 5.8 T/CUMM (4-12)
[2016-09-07 06:14] LABS: INR 1.4; PT Patient Result 15.4 SECS
[2016-09-07 06:20] LABS: Eosinophils 2 % (0-10); Hypochromasia 1+; Lymphocytes 33 % (20-55); Platelet Estimate Decreased; Segmented Neutrophils 57 % (50-85); Total Cells Counted 100
[2016-09-07 06:39] LABS: Calcium 7.8 MG/DL (8.5-10.1); Magnesium 1.8 MG/DL (1.8-2.4); Osmolality,Calculated 310.7 MOS/KG (273-304); Potassium 3.8 MMOL/L (3.5-5.1)
--- NOTE | 2016-09-07 07:41 | Urology Progress Note ---
Urology - PN: Subj Interval history: PSA is 1.3. Patient is now on medical management for BPH. I will give him a trial of voiding tomorrow Exam - Constitutional Vitals: Period Temp Pulse Resp BP Sys/Wick Pulse Ox Last 24 Hr 20 F-99.6 F 78-89 17-21 102-134/55-82 93-97 Results - Labs CBC & BMP: 09/07/16 05:08 09/07/16 05:08
--- NOTE | 2016-09-07 10:04 | Nephrology Progress Note ---
Nephrology - PN: Subj Interval history: Patient said hello this morning to being addressed. Review of systems: GI the patient did take some breakfast and is staying down. Physical exam general patient's chronically ill-appearing he remains drowsy and poorly responsive Assessment/plan 1. Acute renal failure-patient's creatinine is improving at 3.3 mg/dL today down from around 4.3 mg/dL yesterday, we'll continue IV fluids. 2. Dementia 3. Volume depletion 4. Diabetes mellitus Exam (PN)-Nephrology - Vital Signs Vital signs: Period Temp Pulse Resp BP Sys/Wick Pulse Ox Last 24 Hr 20 F-99.6 F 78-89 17-21 102-134/55-82 93-98 - Lab 09/07/16 05:08 09/07/16 05:08 Most recent lab results Calcium 7.8 MG/DL (8.5-10.1) L 09/07/16 05:08 Magnesium 1.8 MG/DL (1.8-2.4) 09/07/16 05:08 Assessment and Plan (1) Acute on chronic renal failure Status: Acute Assessment and plan: I agree with IV fluids as ordered. I mentioned to the patient's that a PEG feeding tube may ultimately be required. Current Visit: Yes (2) History of hypertension Status: Acute Assessment and plan: This patient has been having decreased blood pressure lately per the patient's , she has been holding his Diovan on an diuretic Current Visit: Yes (3) Dehydration Status: Acute Current Visit: Yes (4) Hypokalemia Status: Acute Assessment and plan: Continue IV replacement of potassium Current Visit: Yes (5) Chronic hepatitis B Status: Acute Assessment and plan: Patient is on chronic treatment for this with Baraclude Current Visit: No (6) Gastroparesis Status: Acute Current Visit: No (7) Diabetes mellitus Status: Chronic Current Visit: No Qualifiers: Diabetes mellitus type: type 2 (8) Dementia Status: Acute Assessment and plan: This patient's had a fairly rapid decline in his mental status over the past 8 months or so. He apparently saw a neurologist in [place] related to the dementia is seen in [employer]-ball[employer]'s. I'm not sure if the Reglan would cause such a prolonged dementia after a 10 day exposure as he had 6-8 months ago. Current Visit: Yes (9) Weight loss Status: Acute Assessment and plan: With his history of colon cancer and oriented that he may have a recurrence of this causing some weight loss. However this may be more result of his progressive dementia. I'll review his previous hospitalization for test that may have screened for this. Current Visit: Yes
--- NOTE | 2016-09-07 10:09 | General Surgery Consult Note ---
Assessment and Plan - Time spent with patient Time spent with patient: Greater than 30 minutes (1) Decubitus ulcer of sacral region, unstageable Status: Acute Assessment and plan: We will start good skin prep to periwound skin excoriation, add Santyl to this area and continue offloading. I don't favor aggressive debridement of this area right now, although it will likely need debridement at some point. The periwound excoriation should heal if we can address the moisture issue. Will watch stools for the possibility of C. dificile since he's recently been on antibiotics. Current Visit: Yes (2) Decubitus ulcer, heel, left, unstageable Status: Acute Assessment and plan: Unstageable heel decubitus-for surgical debridement in am. This was discussed with his , who is agreeable. Current Visit: Yes (3) Protein-calorie malnutrition, mild Status: Acute Assessment and plan: This has already been addressed with his , who is considering PEG. I think we will need to progress to this sooner rather than later, if we are to improve his healing status. Current Visit: Yes (4) Diabetic foot infection Status: Acute Assessment and plan: He appears to have adequate blood flow to the foot and we are planning debridement and drainage tomorrow, although the is aware we still may not be able to ultimately save the left 2nd toe, owing to extensive infection and tissue loss. She is agreeable to the debridement and we can at least clear the area of necrotic bioburden, and facilitate healthy tissue growth before proceeding with any amputation decision. She is amenable to this. He will need dedicated wound care and compression post op. We've cultured the drainage plus will obtain tissue cultures in the OR tomorrow. Current Visit: Yes History of Present Illness Chief complaint: 1.DFUs LLE w/infection & ischemia 2.Sacral decubitus, unstageable History of present illness: Mr. Almanza is a 71 year old male Home Medications Medication Instructions Recorded Confirmed Type Cetirizine Tab [ZyrTEC Tab] 10 mg PO BEDTIME 03/30/16 09/03/16 History Entecavir 0.5 mg PO DAILY 03/30/16 09/03/16 History Ezetimibe [Zetia] 10 mg PO BEDTIME 03/30/16 09/03/16 History Febuxostat [Uloric] 80 mg PO BEDTIME 03/30/16 09/03/16 History Insulin Lispro [HumaLOG] See Protocol SUBCUT ACHS ml 04/06/16 09/03/16 Rx Apixaban [Eliquis] 5 mg PO DAILY 08/10/16 09/03/16 History Colchicine 0.6 mg PO DAILY W/BREAKFAST PRN 08/10/16 09/03/16 History Omeprazole 40 mg PO QAM 08/10/16 09/03/16 History traMADol TAB [Ultram] 50 mg PO Q6H PRN #20 tablet 08/10/16 09/03/16 Rx Clarithromycin 500 mg PO BID 09/03/16 09/03/16 History Minocycline [Minocin] 100 mg PO BID 09/03/16 09/03/16 History Allergies Allergy/AdvReac Type Severity Reaction Status Date / Time No Known Allergies Allergy Verified 03/30/16 14:24 Medical,Surgical,& Family Hx - Medical History Cardio: History of: Cardiac Dysrhythmia, Hypertension Endocrine: History of: Diabetes Mellitus (IDDM), Diabetes Mellitus (NIDDM) Rheumatology: History of;: Gout Gastrointestinal: History of: GERD, GI Problems (GASTROPERESIS) Musculoskeletal: History of: Musculoskeletal Problems (arthritis) Other: History of: Miscellaneous Medical Problems (hepatitis B--nondetectable) - Surgical History Cardiac Surgeries: Sugical HX of: Cardiac Catheterization, Vascular Access Devices (pacemaker) Abdominal Surgeries: Surgical HX of: Abdominal Surgery ("colon"), Cholecystectomy Orthopedic Surgeries: Surgical HX of;: Orthopedic Surgery - Family History Family History: Denies;: Family Stroke - Social History Smoking Status: Never smoker Frequency of Alcohol Use: None Type of Drug Use: None ROS unobtainable: due to mental status - Constitutional Constitutional: Present: weight loss (100lbs in 8 months per ) - Gastrointestinal Gastrointestinal: Present: early satiety, loose stools, other (gastroparesis) - Neurological Neurological: Present: as per HPI Exam - Constitutional Vitals: Period Temp Pulse Resp BP Sys/Wick Pulse Ox Last 24 Hr 20 F-99.6 F 78-89 17-21 102-134/55-82 93-98 General appearance: other (Info is per ; pt is rather moribund. Near the end of the visit he opens his eyes when sacral area is examined but gives no verbal response; withdraws mildly to painful stimulation during examination of his sacral/anorectal area.) - Respiratory Respiratory exam: Present: rhonchi. Absent: wheezes - GI/Abdominal GI/Abdominal exam: Present: hypoactive bowel sounds. Absent: guarding, tenderness - Anus/Rectum Anus/Rectum: hemorrhoids - Extremities Exam Extremities exam: Present: other (LLE without swelling. Pulses palpable at the PT and DP sites. Ischemic changes with swelling of the left 2nd toe with an adherent scab and purulent drainage; this was cultured. Also adherent scabs of the left lateral midfoot, left lateral tibia. Left heel with large adherent unstageable eschar. This is without drainage. There is pitting edema of the extremity with mild chronic venous stasis skin changes. He has no visible redness. There is healing abrasion at the dorsal left foot, which appears to be dressing related. Right lower extremity is without gross abnormality. There are no ischemic or pressure changes, no ulcers. Pulses palpable. ) - Back Exam Back exam: Present: other (Excoriation of the sacral and buttocks skin with approximately 3x3cm unstageable eschar at the coccygeal area. There is no fluctuance. He has moderate hemorrhoidal disease without thrombosis or bleeding. ) - Neurological Exam Neurological exam: Present: altered, motor sensory deficit (Decreased reflexes and motor-sensory response. ), other (Markedly abnormal.) Quality Measures - VTE Contraindication to Pharmacological VTE Prophylaxis: Already on Theraputic Agent , No Prophylaxis Needed Results - Labs CBC & BMP: 09/07/16 05:08 09/07/16 05:08
--- NOTE | 2016-09-07 10:22 | Gastrointestinal Progress Note ---
<CompatheresaEliza Gertrudis - Last Filed: 09/07/16 10:18> Gastroenterology - PN: Subj Interval history: CC: Malnutrition Pt is seen, more awake, alert today. He has taken in some clear liquids and is tolerating this well at present. His is at bedside and does not report any choking, signs of aspirating at present time. Abdomen is soft, nontender. He did receive 2 units of PRBC on yesterday for hgb 8.5, now improved at 10.2. No signs of bleeding have been noted. states he has sickle cell trait however he has not had to have transfusion in the past that she is aware of. ROS: No acute distress Exam (Progress Note) - Constitutional Vitals: Period Temp Pulse Resp BP Sys/Wick Pulse Ox Last 24 Hr 20 F-99.6 F 78-89 17-21 102-134/55-82 93-98 General appearance: normal weight, no acute distress - Head Head exam: Present: normal inspection, normocephalic - Eye Eye exam: Present: other (lids and conjunctiva unremarkable). Absent: scleral icterus - ENT ENT exam: Present: normal exam, normal oropharynx - Neck Neck exam: Present: normal inspection - Respiratory Respiratory exam: Present: clear to auscultation bilaterally. Absent: rales, rhonchi, wheezes - Cardiovascular Cardiovascular exam: Present: regular rate and rhythm. Absent: diastolic murmur , JVD, systolic murmur - GI/Abdominal GI/Abdominal exam: Present: normal bowel sounds, soft. Absent: ascites, distended, mass, organomegaly, tenderness - Extremities Exam Extremities exam: Present: normal inspection, full ROM - Back Exam Back exam: Present: normal inspection - Neurological Exam Neurological exam: Present: alert, altered - Psychiatric Psychiatric exam: Present: other - Skin Skin exam: Present: normal color, warm, dry Results - Labs CBC & BMP: 09/07/16 05:08 09/07/16 05:08 Lab Results: I have reviewed the past 24 hour labs <Moreno Duran - Last Filed: 09/07/16 18:13> Assessment and Plan (1) Malnutrition Status: Acute Current Visit: Yes Exam (Progress Note) - Constitutional Vitals: Period Temp Pulse Resp BP Sys/Wick Pulse Ox Last 24 Hr 97.2 F-98.9 F 83-89 10-21 102-128/55-75 93-98 Results - Labs CBC & BMP: 09/07/16 05:08 09/07/16 05:08
[2016-09-07] MEDS ORDERED: CHLORHEXIDINE 4% SOLN 118 ML BOTTLE TOP ONE (10:32)
[2016-09-07] MEDS: TAMSULOSIN 0.4 MG CAPSULE PO SCH (11:20)
[2016-09-07] MEDS: FINASTERIDE 5 MG TABLET PO SCH (11:20)
[2016-09-07] MEDS: INSULIN LISPRO 100 UNIT/ML SUBCUT SCH ×4 (11:21→21:47)
[2016-09-07] MEDS: PANTOPRAZOLE 40 MG VIAL IV SCH (11:21)
[2016-09-07] MEDS: DESITIN 4OZ/NYSTATIN 15 GRAM MIXTURE PASTE TOP SCH ×2 (11:24→21:47)
--- NOTE | 2016-09-07 12:43 | Hospitalist Progress Note ---
Assessment and Plan - Time spent with patient Time spent with patient: Less than 30 minutes (due to assessment, plan and doc) (1) Acute on chronic renal failure Status: Acute Assessment and plan: hydrate consult nephrology monitored bed Current Visit: Yes (2) Dehydration Status: Acute Current Visit: Yes (3) Hypokalemia Status: Acute Current Visit: Yes (4) Decubital ulcer Status: Acute Current Visit: No Qualifiers: Pressure ulcer stage: stage II Qualified Code(s): L89.92 - Pressure ulcer of unspecified site, stage 2 (5) Gastroparesis Status: Acute Current Visit: No (6) Diabetes mellitus Status: Chronic Current Visit: No Qualifiers: Diabetes mellitus type: type 2 (7) Hypertension Status: Chronic Current Visit: No Qualifiers: Hypertension type: essential hypertension Qualified Code(s): I10 - Essential (primary) hypertension (8) Weakness Status: Chronic Current Visit: No (9) Acute worsening of stage 3 chronic kidney disease Status: Acute Current Visit: Yes (10) Decubitus ulcer of sacral region, unstageable Status: Acute Current Visit: Yes (11) Decubitus ulcer, heel, left, unstageable Status: Acute Current Visit: Yes (12) Protein-calorie malnutrition, mild Status: Acute Current Visit: Yes (13) Chronic hepatitis B Status: Acute Current Visit: No Hospitalist: Subjective Interval history: Mr. Almanza is seen on rounds today with his at beside. He appears to be more alert than on admission. Dr. Gallo and Ms. Елена Vanegas have seen in surgical consultation and are planning to take to surgery tomorrow for i/d of decubitus to his toe and sacrum. Dr. Duran is also seeing for GI. He has a hx of gastroparesis and patient and are considering PEG tube placement. Urology is also following for BPH and he has been started on appropriate medications for this. Labs are stable to improve with his creatinine down to 3.3 from 4.2 yesterday. Vitals are stable. We will continue to follow along with Consultants. Exam - Constitutional Vitals: Period Temp Pulse Resp BP Sys/Wick Pulse Ox Last 24 Hr 20 F-99.6 F 78-89 10-21 102-134/55-78 93-98 General appearance: no acute distress, over weight - Head Head exam: Present: normal inspection, normocephalic - Eye Eye exam: Present: EOMI. Absent: scleral icterus Pupils: Present: TRACEY, normal accommodation - ENT ENT exam: Present: normal exam, normal oropharynx - Neck Neck exam: Present: normal inspection. Absent: lymphadenopathy - Respiratory Respiratory exam: Present: clear to auscultation bilaterally. Absent: accessory muscle use - Cardiovascular Cardiovascular exam: Present: regular rate and rhythm. Absent: carotid bruit - GI/Abdominal GI/Abdominal exam: Present: normal bowel sounds, soft. Absent: tenderness - Extremities Exam Extremities exam: Present: normal inspection. Absent: edema - Back Exam Back exam: Present: normal inspection. Absent: muscle spasm - Neurological Exam Neurological exam: Present: alert, altered (he will respond today, but still altered. ) - Psychiatric Psychiatric exam: Present: flat affect - Skin Skin exam: Present: other (normal except decub to toe and sacrum.) Results - Labs CBC & BMP: 09/07/16 05:08 09/07/16 05:08 Lab Results: I have reviewed the past 24 hour labs Quality Measures - VTE Contraindication to Pharmacological VTE Prophylaxis: Already on Theraputic Agent , No Prophylaxis Needed
[2016-09-07] MEDS: COLLAGENASE OINT 30 GM TUBE TOP SCH (14:30)
[2016-09-07] MEDS: BACITRACIN OINT 0.9 GM PACK TOP SCH (14:30)
[2016-09-07] MEDS ORDERED: FAMOTIDINE 20 MG TABLET PO ONE (14:36)
[2016-09-07] MEDS ORDERED: LORazepam 0.5 MG TABLET PO ONE (14:36)
[2016-09-07] MEDS: FEBUXOSTAT 80 MG TABLET PO SCH (21:46)
[2016-09-08] MEDS: POTASSIUM CHLORIDE INJ 20 MEQ in SODIUM CHLORIDE 0.45% 1,000 ML IV SCH (02:26)
[2016-09-08 04:57] LABS: Basophils % 0.5 % (0.0-0.8); Eosinophils # 0.1 10*3/uL (0.0-0.87); Hematocrit 28.9 VOL% (42.0-52.0); Hemoglobin 9.9 GM/DL (14.0-18.0); Immature Granulocytes % 0.5 %; Immature Granulocytes Absolute 0.03 #; Lymphocytes # 1.6 10*3/uL (1.4-4.0); Lymphocytes % 27.4 % (21.2-54.2); Mean Corpuscular HGB Conc 34.3 GM/DL (32-36); Mean Corpuscular Hemoglobin 29 PG (27-34); Mean Corpuscular Volume 84.3 FL (87-102); Mean Platelet Volume 11.9 FL (9.6-12.0); Monocytes # 0.6 10*3/uL (0.11-0.8); Monocytes % 10.5 % (1.7-12.7); Neutrophils # 3.5 10*3/uL (1.4-7.4); Neutrophils % 60.1 % (38.7-73.9); Platelet Count 90 T/CUMM (130-400); Red Blood Count 3.43 MC/CUMM (3.8-5.5); Red Cell Distribution Width 14.4 % (9.3-17.3); White Blood Count 5.8 T/CUMM (4-12)
[2016-09-08 05:21] LABS: Lymphocytes 18 % (20-55); Segmented Neutrophils 75 % (50-85); Total Cells Counted 100
[2016-09-08 05:22] LABS: Albumin 1.6 G/DL (3.4-5.0); Calcium 7.6 MG/DL (8.5-10.1); Osmolality,Calculated 306.7 MOS/KG (273-304); Platelet Estimate Decreased; Potassium 3.5 MMOL/L (3.5-5.1); Total Protein 5.9 G/DL (6.4-8.3)
[2016-09-08 05:37] LABS: Calcium 7.6 MG/DL (8.5-10.1); Magnesium 1.7 MG/DL (1.8-2.4); Osmolality,Calculated 308.6 MOS/KG (273-304); Potassium 3.5 MMOL/L (3.5-5.1)
--- NOTE | 2016-09-08 07:47 | Urology Progress Note ---
Urology - PN: Subj Interval history: Trial of voiding today Exam - Constitutional Vitals: Period Temp Pulse Resp BP Sys/Wick Pulse Ox Last 24 Hr 97.1 F-98.9 F 81-90 10-20 102-119/57-70 95-100 Results - Labs CBC & BMP: 09/08/16 04:38 09/08/16 04:38
--- NOTE | 2016-09-08 07:49 | Nephrology Progress Note ---
Nephrology - PN: Subj Interval history: Patient little more interactive today he denies shortness of breath. Review of systems GI he denies nausea or vomiting, his states that he will drink some fluids and a little bit of some nutrition drink. She states that he has had some problems with swallowing large pills and is asking about a swallowing evaluation mentioned over the weekend. Physical exam general patient remains bedbound and poorly interactive verbally and physically Assessment/plan 1. Acute renal failure-patient's creatinines 2.6 mg/dL this is improved to about his baseline 2. Dementia 3. Malnutrition-I'm going to ask speech therapy to do a bedside swallowing study 4. Diabetic foot disease management per Dr. Gallo Exam (PN)-Nephrology - Vital Signs Vital signs: Period Temp Pulse Resp BP Sys/Wick Pulse Ox Last 24 Hr 97.1 F-98.9 F 81-90 10-20 102-119/57-70 95-100 - Lab 09/08/16 04:38 09/08/16 04:38 Most recent lab results Calcium 7.6 MG/DL (8.5-10.1) L 09/08/16 04:38 Magnesium 1.7 MG/DL (1.8-2.4) L 09/08/16 04:38 Assessment and Plan (1) Acute on chronic renal failure Status: Acute Assessment and plan: I agree with IV fluids as ordered. I mentioned to the patient's that a PEG feeding tube may ultimately be required. Current Visit: Yes (2) History of hypertension Status: Acute Assessment and plan: This patient has been having decreased blood pressure lately per the patient's , she has been holding his Diovan on an diuretic Current Visit: Yes (3) Dehydration Status: Acute Current Visit: Yes (4) Hypokalemia Status: Acute Assessment and plan: Continue IV replacement of potassium Current Visit: Yes (5) Chronic hepatitis B Status: Acute Assessment and plan: Patient is on chronic treatment for this with Baraclude Current Visit: No (6) Gastroparesis Status: Acute Current Visit: No (7) Diabetes mellitus Status: Chronic Current Visit: No Qualifiers: Diabetes mellitus type: type 2 (8) Dementia Status: Acute Assessment and plan: This patient's had a fairly rapid decline in his mental status over the past 8 months or so. 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 I'm not sure if the Reglan would cause such a prolonged dementia after a 10 day exposure as he had 6-8 months ago. Current Visit: Yes (9) Weight loss Status: Acute Assessment and plan: With his history of colon cancer and oriented that he may have a recurrence of this causing some weight loss. However this may be more result of his progressive dementia. I'll review his previous hospitalization for test that may have screened for this. Current Visit: Yes
[2016-09-08] MEDS: INSULIN LISPRO 100 UNIT/ML SUBCUT SCH ×4 (08:32→22:18)
[2016-09-08] MEDS: LORazepam 0.5 MG TABLET PO ONE ×2 (08:56→11:15)
[2016-09-08] MEDS: PANTOPRAZOLE 40 MG VIAL IV SCH (08:57)
[2016-09-08] MEDS: METOCLOPRAMIDE 10 MG/2 ML VIAL IM ONE ×2 (08:57→09:04)
[2016-09-08] MEDS: FAMOTIDINE 20 MG TABLET PO ONE ×2 (08:57→11:16)
[2016-09-08] MEDS: BACITRACIN OINT 0.9 GM PACK TOP SCH (09:05)
[2016-09-08] MEDS: SODIUM HYPOCHLORITE 0.25% IRRIG 473 ML BOTTLE TOP SCH (09:05)
[2016-09-08] MEDS ORDERED: BUPIVACAINE MPF 0.25% /EPI 30 ML VIAL ONE (09:14)
[2016-09-08] MEDS: DESITIN 4OZ/NYSTATIN 15 GRAM MIXTURE PASTE TOP SCH ×2 (09:16→22:30)
--- NOTE | 2016-09-08 11:47 | Gastrointestinal Progress Note ---
<Eliza De La Rosa - Last Filed: 09/08/16 11:45> Assessment and Plan (1) Malnutrition Status: Acute Assessment and plan: 09/08-Tolerating diet slightly better at present. No changes. No plans to proceed with feeding tube placement at present. Plan and addendum to follow by Dr Duran. Current Visit: Yes Gastroenterology - PN: Subj Interval history: CC: Malnutrition Pt is seen, getting ready to go for debridment of foot. His is at bedside and states he did better last night with his eating. States he took in a little more than he has been doing and seemed to tolerate this well. She states she spoke with him regarding the options for nutrition and he does not want to proceed with any feeding tubes at present time. Abdomen is soft, nontender. ROS: Denies SOB or chest pain Exam (Progress Note) - Constitutional Vitals: Period Temp Pulse Resp BP Sys/Wick Pulse Ox Last 24 Hr 97.1 F-98.3 F 81-90 10-20 102-122/57-66 95-100 General appearance: normal weight, no acute distress - Head Head exam: Present: normal inspection, normocephalic - Eye Eye exam: Present: other (lids and conjunctiva unremarkable). Absent: scleral icterus - ENT ENT exam: Present: normal exam, normal oropharynx - Neck Neck exam: Present: normal inspection - Respiratory Respiratory exam: Present: clear to auscultation bilaterally. Absent: rales, rhonchi, wheezes - Cardiovascular Cardiovascular exam: Present: regular rate and rhythm. Absent: diastolic murmur , JVD, systolic murmur - GI/Abdominal GI/Abdominal exam: Present: normal bowel sounds, soft. Absent: ascites, distended, mass, organomegaly, tenderness - Extremities Exam Extremities exam: Present: normal inspection, full ROM - Back Exam Back exam: Present: normal inspection - Neurological Exam Neurological exam: Present: alert, altered - Psychiatric Psychiatric exam: Present: other - Skin Skin exam: Present: normal color, warm, dry Results - Labs CBC & BMP: 09/08/16 04:38 09/08/16 04:38 Lab Results: I have reviewed the past 24 hour labs <Moreno Duran - Last Filed: 09/09/16 10:04> Assessment and Plan (1) Malnutrition Status: Acute Current Visit: Yes Exam (Progress Note) - Constitutional Vitals: Period Temp Pulse Resp BP Sys/Wick Pulse Ox Last 24 Hr 97.0 F-99.4 F 81-93 16-26 118-149/70-109 95-100 Results - Labs CBC & BMP: 09/09/16 04:35 09/09/16 04:35
[2016-09-08] MEDS ORDERED: LIDOCAINE 2% 5 ML VIAL ONE (12:51)
[2016-09-08] MEDS ORDERED: PROPOFOL 200 MG/20 ML VIAL IV ONE (12:51)
[2016-09-08] MEDS ORDERED: PHENYLEPHRINE 50 MG/5 ML VIAL ONE ×2 (12:51→14:30)
--- NOTE | 2016-09-08 13:38 | Hospitalist Progress Note ---
Assessment and Plan (1) Acute on chronic renal failure Status: Acute Assessment and plan: hydrate consult nephrology monitored bed Current Visit: Yes (2) Dehydration Status: Acute Current Visit: Yes (3) Hypokalemia Status: Acute Current Visit: Yes (4) Decubital ulcer Status: Acute Current Visit: No Qualifiers: Pressure ulcer stage: stage II Qualified Code(s): L89.92 - Pressure ulcer of unspecified site, stage 2 (5) Gastroparesis Status: Acute Current Visit: No (6) Diabetes mellitus Status: Chronic Current Visit: No Qualifiers: Diabetes mellitus type: type 2 (7) Hypertension Status: Chronic Current Visit: No Qualifiers: Hypertension type: essential hypertension Qualified Code(s): I10 - Essential (primary) hypertension (8) Weakness Status: Chronic Current Visit: No (9) Acute worsening of stage 3 chronic kidney disease Status: Acute Current Visit: Yes (10) Decubitus ulcer of sacral region, unstageable Status: Acute Current Visit: Yes (11) Decubitus ulcer, heel, left, unstageable Status: Acute Current Visit: Yes (12) Protein-calorie malnutrition, mild Status: Acute Current Visit: Yes (13) Chronic hepatitis B Status: Acute Current Visit: No Hospitalist: Subjective Interval history: Mr. Almanza is gone for debridement of ulcer. Labs are stable to improved. Will see later today. Exam - Constitutional Vitals: Period Temp Pulse Resp BP Sys/Wick Pulse Ox Last 24 Hr 97.1 F-98.3 F 81-90 18-20 102-122/57-65 95-100 Results - Labs CBC & BMP: 09/08/16 04:38 09/08/16 04:38 Quality Measures - VTE Contraindication to Pharmacological VTE Prophylaxis: Already on Theraputic Agent , No Prophylaxis Needed
[2016-09-08] MEDS ORDERED: GENTAMICIN 0.1% CREAM 15 GM TUBE TOP ONE (13:52)
[2016-09-08] MEDS ORDERED: fentaNYL 100 MCG/2 ML VIAL ONE (14:28)
[2016-09-08] MEDS ORDERED: KETAMINE 500 MG/10 ML VIAL ONE (14:29)
[2016-09-08] MEDS ORDERED: HYDROmorphone 2 MG/1 ML VIAL IV PRN (14:39)
[2016-09-08] MEDS ORDERED: SODIUM CHLORIDE 0.45% 1,000 ML IV SCH (15:00)
[2016-09-08] MEDS: SODIUM CHLORIDE 23.4% CONC INJ 38.5 MEQ, SODIUM BICARB INJ 50 MEQ, POTASSIUM CHLORIDE I... IV SCH ×2 (15:15→23:47)
--- NOTE | 2016-09-08 15:19 | Operative Note ---
Date of procedure: 09/08/16 Pre-op diagnosis: Multiple decubitus ulcers Post-op diagnosis: same Procedure: Operative note: Preoperative diagnosis: Unstageable decubitus ulcer 1. Sacrum left buttocks/ 2. Fifth metatarsal head lateral left foot 3 left lateral leg proximal 4. Left lateral leg distal 5. Posterior leg ulcer 6. Left second toe ulcer 7. Left heel ulcer Postoperative diagnosis: 1. Unstageable sacral left buttocks ulcer 2. Left lateral foot fifth metatarsal stage IV 3. Left lateral leg proximal stage III 4. Left lateral leg distal stage III 5. Posterior leg ulcer stage III 6. 6. Left second toe ulcer stage IV 7. Left heel ulcer stage IV Procedure: 1. Excisional debridement of sacral left buttocks ulcer 2. Excisional debridement of fifth metatarsal head ulcer left foot 3. Excision debridement of ulcer left lateral leg proximal 4. Excisional debridement of left lateral leg distal 5. Excisional debridement of left leg posterior ulcer 6. Excision debridement of left second toe ulcer 7. Excisional debridement of left heel ulcer. Surgeon Dr. Gallo Anesthesia was managed anesthetic care with local Brief history: 71-year-old bedridden -[place] male who has multiple decubitus ulcers of the left lower extremity and the sacral area that have gotten progressively worse. They all have dense eschars with them and are unstageable at this time. He was brought to surgery for debridement. Procedure: With patient In the right lateral decubitus position prepped and draped in a sterile fashion timeout and antibiotics completed approaches area of the ulcers in order to get these areas debrided. Pre-debridement measurements are 1. 5 cm x 9.5 cm. 2. Fifth metatarsal head lateral left foot 2 x 1.6 cm. 3. Left heel ulcer 6.6 x 6.3 cm 4. Left lateral proximal leg ulcer 0.5 x 1.5 cm 5. Left lateral distal leg ulcer 1 x 1 cm. 6. Left leg posterior ulcer 0.5 x 0.5 cm 7. Left second toe ulcer 1.4 x 1.4 cm. At this point we approach the area of the sacral ulcer where we began to do just a tangential debridement of the eschar in the center portion of this ulcer carried down into some bleeding tissue along this area but avoiding to get into deep fatty tissue at this time. Still hard to stay just ulcer which that may be a stage III ulcer at this point but once we reach some bleeding after the tangential of the debridement which he stopped at this point to see if we can let the the Santyl to further debrided. When we finished we had a post debridement ulcer that is 5 cm x 9.5 cm x 0.3 cm in size We next moved to the left fifth metatarsal head ulcer where we took the knife and debrided the dark eschar off and then applied scissors to the brace of it to debride some fascial tissue and tendon but not to expose bone. Once we had finished we had a ulcer that is 3 x 2.4 x 0.3 cm in size. We next moved to the left heel ulcer where we took a knife to the dense eschar and begin to debride that away getting it down to necrotic fatty tissue which we had to debride with the scissors taking tissue for culture at this point. We debrided down to some tendon but we did not exposed tendon completely debriding all around the necrotic skin and necrotic fatty tissue in order to get a clean base at this time. This made this probably a stage IV ulcer. We now have an ulcer that is 7.6 x 6.5 x 0.5 cm At this point we next moved up to the leg where we did approach the ulcer of the left lateral proximal ulcer which we then debrided with a knife and the scissors of the skin and necrotic fatty tissue leaving us with an ulcer that is now 1.4 x 0.5 x 0.3 cm this is a probably stage III ulcer next removed to the Left lateral distal leg ulcer debriding it with the knife of the eschar and scissors to debride the necrotic fatty tissue creating a stage III ulcer at this point. We now have an ulcer that measures 1.4 x 1.4 x 0.3 cm. We next moved to the posterior leg ulcer and took the knife and debrided the eschar and then the scissors to the fatty tissue underneath until we have an ulcer that is 1 x 1 x 0.4 cm We next approached. The second toe ulcer will be took the knife and debrided the eschar off and then debrided some of the fatty tissue around it. As that worked only as we encountered the cartilage between the joints which we were easily able to easily remove and sent for culture. Once that was out and we now have a ulcer that is 1.5 x 1.5 x 0.5 cm With a completed and dressings were applied and the patient was taken to recovery room. Estimated blood loss 15 cc Sponge count correct 2 Drains none Complications none Condition stable and satisfactory Anesthesia: MAC, local (0.25% Marcaine plain mixed [id number]-[id number] with 1% Xylocaine plain) Surgeon / Physician: Delgado Gallo Estimated blood loss: other (20 cc) Specimens: other (Tissue for cultures) Condition: stable Disposition: floor Results - Labs CBC & BMP: 09/08/16 04:38 09/08/16 04:38 Discharge Plan - Discharge Medications No Action Ezetimibe [Zetia] 10 mg PO BEDTIME Cetirizine Tab [ZyrTEC Tab] 10 mg PO BEDTIME Febuxostat [Uloric] 80 mg PO BEDTIME Entecavir 0.5 mg PO DAILY Insulin Lispro [HumaLOG] See Protocol SUBCUT ACHS ml Colchicine 0.6 mg PO DAILY W/BREAKFAST PRN PRN Reason: Gout traMADol TAB [Ultram] 50 mg PO Q6H PRN #20 tablet PRN Reason: Pain Clarithromycin 500 mg PO BID Omeprazole 40 mg PO QAM Apixaban [Eliquis] 5 mg PO DAILY Minocycline [Minocin] 100 mg PO BID - Follow Up or Referral - Forms/Instructions
[2016-09-08] MEDS: COLLAGENASE OINT 30 GM TUBE TOP SCH (16:16)
[2016-09-08] MEDS: TAMSULOSIN 0.4 MG CAPSULE PO SCH (17:25)
[2016-09-08] MEDS: FINASTERIDE 5 MG TABLET PO SCH (17:26)
--- NOTE | 2016-09-08 20:31 | Anesthesia ---
Anesthesia Post OP - Post Ansesthetic Evaluation Patient seen in post op: Yes Resp: within normal limits CV: within normal limits Mental: within normal limits Temp: within normal limits Nidg-Nk-[id number]: within normal limits Nausea and Vomiting: within normal limits Pain: within normal limits
[2016-09-08] MEDS: FEBUXOSTAT 80 MG TABLET PO SCH (21:06)
[2016-09-09 04:58] LABS: Basophils % 0.6 % (0.0-0.8); Eosinophils # 0.1 10*3/uL (0.0-0.87); Hematocrit 29.9 VOL% (42.0-52.0); Hemoglobin 9.9 GM/DL (14.0-18.0); Immature Granulocytes % 0.4 %; Immature Granulocytes Absolute 0.03 #; Lymphocytes # 1.9 10*3/uL (1.4-4.0); Lymphocytes % 27.5 % (21.2-54.2); Mean Corpuscular HGB Conc 33.1 GM/DL (32-36); Mean Corpuscular Hemoglobin 29 PG (27-34); Mean Corpuscular Volume 86.9 FL (87-102); Mean Platelet Volume 11.6 FL (9.6-12.0); Monocytes # 0.8 10*3/uL (0.11-0.8); Monocytes % 11.9 % (1.7-12.7); Neutrophils % 58.6 % (38.7-73.9); Platelet Count 99 T/CUMM (130-400); Red Blood Count 3.44 MC/CUMM (3.8-5.5); Red Cell Distribution Width 14.7 % (9.3-17.3); White Blood Count 6.8 T/CUMM (4-12)
[2016-09-09 05:24] LABS: Hypochromasia 1+; Lymphocytes 25 % (20-55); Microcytosis Slight; Segmented Neutrophils 61 % (50-85); Total Cells Counted 100
[2016-09-09 05:25] LABS: Platelet Estimate Decreased
[2016-09-09 05:28] LABS: Calcium 7.5 MG/DL (8.5-10.1); Magnesium 1.5 MG/DL (1.8-2.4); Osmolality,Calculated 304.6 MOS/KG (273-304); Potassium 3.9 MMOL/L (3.5-5.1)
[2016-09-09 05:31] LABS: Albumin 1.4 G/DL (3.4-5.0); Bilirubin,Total 1.5 MG/DL (0.2-1.0); Calcium 7.3 MG/DL (8.5-10.1); Osmolality,Calculated 306.4 MOS/KG (273-304); Total Protein 6.1 G/DL (6.4-8.3)
--- NOTE | 2016-09-09 07:49 | Urology Progress Note ---
Urology - PN: Subj Interval history: The patient is voiding in a diaper but was not catheterized for residual yesterday. We'll start in and out catheterization every 8 hours and when necessary today Exam - Constitutional Vitals: Period Temp Pulse Resp BP Sys/Wick Pulse Ox Last 24 Hr 97.0 F-98.2 F 81-93 16-26 118-146/65-109 95-100 Results - Labs CBC & BMP: 09/09/16 04:35 09/09/16 04:35
--- NOTE | 2016-09-09 08:20 | Nephrology Progress Note ---
Nephrology - PN: Subj Interval history: Patient states she's feeling better today. Physical exam general patient's chronically ill-appearing, heart is regular rate and rhythm, he has no pitting edema, lungs are clear to auscultation anteriorly, abdomen is soft with positive bowel sounds Assessment/plan 1. Acute renal failure-this patient's creatinine is improved at 2.3 mg/dL 2. Dementia 3. Diabetes mellitus is controlled 4. Hypernatremia-I'm going to adjust his IV fluids and decrease the sodium in his fluids 5. Hypokalemia this is improved with potassium in his IV fluids, I'm going to decrease the potassium in them a little today 6. Metabolic acidosis-I'll continue sodium bicarbonate and his IV fluids Exam (PN)-Nephrology - Vital Signs Vital signs: Period Temp Pulse Resp BP Sys/Wick Pulse Ox Last 24 Hr 97.0 F-99.4 F 81-93 16-26 118-149/70-109 95-100 - Lab 09/09/16 04:35 09/09/16 04:35 Most recent lab results Calcium 7.3 MG/DL (8.5-10.1) L 09/09/16 04:35 Magnesium 1.5 MG/DL (1.8-2.4) L 09/09/16 04:35 Assessment and Plan (1) Acute on chronic renal failure Status: Acute Assessment and plan: I agree with IV fluids as ordered. I mentioned to the patient's that a PEG feeding tube may ultimately be required. Current Visit: Yes (2) History of hypertension Status: Acute Assessment and plan: This patient has been having decreased blood pressure lately per the patient's , she has been holding his Diovan on an diuretic Current Visit: Yes (3) Dehydration Status: Acute Current Visit: Yes (4) Hypokalemia Status: Acute Assessment and plan: Continue IV replacement of potassium Current Visit: Yes (5) Chronic hepatitis B Status: Acute Assessment and plan: Patient is on chronic treatment for this with Baraclude Current Visit: No (6) Gastroparesis Status: Acute Current Visit: No (7) Diabetes mellitus Status: Chronic Current Visit: No Qualifiers: Diabetes mellitus type: type 2 (8) Dementia Status: Acute Assessment and plan: This patient's had a fairly rapid decline in his mental status over the past 8 months or so. He apparently saw a neurologist in [place] related to the dementia is seen in [employer]-ball[employer]'s. I'm not sure if the Reglan would cause such a prolonged dementia after a 10 day exposure as he had 6-8 months ago. Current Visit: Yes (9) Weight loss Status: Acute Assessment and plan: With his history of colon cancer and oriented that he may have a recurrence of this causing some weight loss. However this may be more result of his progressive dementia. I'll review his previous hospitalization for test that may have screened for this. Current Visit: Yes
[2016-09-09] MEDS: INSULIN LISPRO 100 UNIT/ML SUBCUT SCH ×4 (09:07→21:50)
[2016-09-09] MEDS: SODIUM HYPOCHLORITE 0.25% IRRIG 473 ML BOTTLE TOP SCH (09:08)
[2016-09-09] MEDS: BACITRACIN OINT 0.9 GM PACK TOP SCH (09:08)
[2016-09-09] MEDS: PANTOPRAZOLE 40 MG VIAL IV SCH (09:09)
[2016-09-09] MEDS: TAMSULOSIN 0.4 MG CAPSULE PO SCH (09:09)
[2016-09-09] MEDS: FINASTERIDE 5 MG TABLET PO SCH (09:09)
[2016-09-09] MEDS: COLLAGENASE OINT 30 GM TUBE TOP SCH (09:10)
[2016-09-09] MEDS: DESITIN 4OZ/NYSTATIN 15 GRAM MIXTURE PASTE TOP SCH ×2 (09:10→21:51)
[2016-09-09] MEDS: SODIUM BICARB INJ 50 MEQ, POTASSIUM CHLORIDE INJ 20 MEQ in DEXTROSE 5% 1,000 ML IV SCH ×3 (10:07→18:50)
--- NOTE | 2016-09-09 10:13 | General Surgery Progress Note ---
Assessment and Plan (1) Decubitus ulcer of sacral region, unstageable Status: Acute Assessment and plan: 09/09/16 Pt is stable post op. 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 Preliminary C&S shows Gram positives, which is no surprise, given the character of the 2nd left toe drainage. Certainly we still need to watch his nutrition closely, and she's got a calorie count in progress while considering a PEG placement. We'll continue to follow while waiting for final cultures. We will start good skin prep to periwound skin excoriation, add Santyl to this area and continue offloading. I don't favor aggressive debridement of this area right now, although it will likely need debridement at some point. The periwound excoriation should heal if we can address the moisture issue. Will watch stools for the possibility of C. dificile since he's recently been on antibiotics. Current Visit: Yes (2) Decubitus ulcer, heel, left, unstageable Status: Acute Assessment and plan: Unstageable heel decubitus-for surgical debridement in am. This was discussed with his , who is agreeable. Current Visit: Yes (3) Protein-calorie malnutrition, mild Status: Acute Assessment and plan: This has already been addressed with his , who is considering PEG. I think we will need to progress to this sooner rather than later, if we are to improve his healing status. Current Visit: Yes (4) Diabetic foot infection Status: Acute Assessment and plan: He appears to have adequate blood flow to the foot and we are planning debridement and drainage tomorrow, although the is aware we still may not be able to ultimately save the left 2nd toe, owing to extensive infection and tissue loss. She is agreeable to the debridement and we can at least clear the area of necrotic bioburden, and facilitate healthy tissue growth before proceeding with any amputation decision. She is amenable to this. He will need dedicated wound care and compression post op. We've cultured the drainage plus will obtain tissue cultures in the OR tomorrow. Current Visit: Yes Subjective Patient reports: Present: tolerating liquids well, other (Denies pain) Exam - Constitutional Vitals: Period Temp Pulse Resp BP Sys/Wick Pulse Ox Last 24 Hr 97.0 F-99.4 F 81-93 16-26 118-149/70-109 95-100 General appearance: other ( at bedside assisting with breakfast; pt will answer a few yes/no questions.) - Respiratory Respiratory exam: Present: rhonchi. Absent: wheezes - GI/Abdominal GI/Abdominal exam: Present: normal bowel sounds, soft. Absent: tenderness - Extremities Exam Extremities exam: Present: other (Dressings in place over left leg; no bleeding strike through. Sacral area not examined.) Results - Labs CBC & BMP: 09/09/16 04:35 09/09/16 04:35 Lab Results: I have reviewed the past 24 hour labs (Post op labs stable.) Quality Measures - VTE Contraindication to Pharmacological VTE Prophylaxis: Already on Theraputic Agent , No Prophylaxis Needed
[2016-09-09] MEDS: SODIUM CHLORIDE 23.4% CONC INJ 38.5 MEQ, SODIUM BICARB INJ 50 MEQ, POTASSIUM CHLORIDE I... IV SCH (10:15)
--- NOTE | 2016-09-09 10:26 | Hospitalist Progress Note ---
Assessment and Plan - Time spent with patient Time spent with patient: Less than 30 minutes (due to assessment, plan and doc) (1) Acute on chronic renal failure Status: Acute Assessment and plan: His creatinine is down to 2.3 from [address] Ruiz with nephrology following Current Visit: Yes (2) Dehydration Status: Resolved Current Visit: Yes (3) Hypokalemia Status: Resolved Current Visit: Yes (4) Decubital ulcer Status: Acute Assessment and plan: s/p debridement Current Visit: No Qualifiers: Pressure ulcer stage: stage II Qualified Code(s): L89.92 - Pressure ulcer of unspecified site, stage 2 (5) Gastroparesis Status: Acute Current Visit: No (6) Diabetes mellitus Status: Chronic Assessment and plan: glucoses typically under 150 today Current Visit: No Qualifiers: Diabetes mellitus type: type 2 (7) Hypertension Status: Chronic Current Visit: No Qualifiers: Hypertension type: essential hypertension Qualified Code(s): I10 - Essential (primary) hypertension (8) Weakness Status: Chronic Current Visit: No (9) Acute worsening of stage 3 chronic kidney disease Status: Acute Current Visit: Yes (10) Decubitus ulcer of sacral region, unstageable Status: Acute Current Visit: Yes (11) Decubitus ulcer, heel, left, unstageable Status: Acute Current Visit: Yes (12) Protein-calorie malnutrition, mild Status: Acute Current Visit: Yes (13) Chronic hepatitis B Status: Acute Current Visit: No Hospitalist: Subjective Interval history: Mr. Almanza seen lying in bed with at bedside. He will open his eyes, but is not conversant. His labs and vitals are stable, however his cx's from left foot debridement are growing gram positive cocci and gram neg rods. I have put on zosyn for that. Sensitivity is pending. Case management is working with [facility] about transfer. Precertification is pending at this time. His has questions regarding PEG tube. I explained PEG to her and how it is used. She is still trying to talk to Mr. Almanza about his wishes regarding PEG tube placement. He will be moved to another floor since he does have positive cx's for infection control purposes. Hope to hear from [facility] soon and anticipate transfer there soon. Exam - Constitutional Vitals: Period Temp Pulse Resp BP Sys/Wick Pulse Ox Last 24 Hr 97.0 F-99.4 F 81-93 16-26 118-149/70-109 95-100 General appearance: normal weight, no acute distress - Head Head exam: Present: normal inspection, normocephalic - Eye Eye exam: Present: EOMI. Absent: scleral icterus Pupils: Present: TRACEY, normal accommodation - ENT ENT exam: Present: normal exam, normal oropharynx - Neck Neck exam: Present: normal inspection. Absent: lymphadenopathy - Respiratory Respiratory exam: Present: clear to auscultation bilaterally. Absent: accessory muscle use - Cardiovascular Cardiovascular exam: Present: regular rate and rhythm - GI/Abdominal GI/Abdominal exam: Present: normal bowel sounds, soft. Absent: tenderness - Extremities Exam Extremities exam: Present: other (left foot s/p debridement). Absent: edema - Back Exam Back exam: Present: normal inspection. Absent: muscle spasm - Neurological Exam Neurological exam: Present: altered (nonconversive, but will open eyes) - Psychiatric Psychiatric exam: Present: other (nonconversant) - Skin Skin exam: Present: normal color, warm, dry, intact, other (normal except: debridement to ulcer left foot) Results - Labs CBC & BMP: 09/09/16 04:35 09/09/16 04:35 Lab Results: I have reviewed the past 24 hour labs Quality Measures - VTE Contraindication to Pharmacological VTE Prophylaxis: Already on Theraputic Agent , No Prophylaxis Needed
[2016-09-09] MEDS ORDERED: PIPERACILLIN/TAZOBACTAM 3,375 MG in SODIUM CHLORIDE 0.9% 100 ML IV SCH (10:30)
--- NOTE | 2016-09-09 11:01 | Gastrointestinal Progress Note ---
<Eliza De La Rosa - Last Filed: 09/09/16 10:53> Assessment and Plan (1) Malnutrition Status: Acute Assessment and plan: 09/09-Minimal intake since yesterday. to discuss PEG tube with their children and decide soon. Plan and addendum to follow by Dr Duran. 09/08-Tolerating diet slightly better at present. No changes. No plans to proceed with feeding tube placement at present. Plan and addendum to follow by Dr Duran. Current Visit: Yes Gastroenterology - PN: Subj Interval history: CC: Malnutrition Pt is seen, somnolent, at side. She states he has been less alert since surgery on yesterday. He has taken in very little liquids since Wednesday. Pt is going to discuss PEG tube option with their daugthers today and make a decision soon regarding possible PEG tube. Abdomen is soft, nontender. ROS: No acute distress noted Exam (Progress Note) - Constitutional Vitals: Period Temp Pulse Resp BP Sys/Wick Pulse Ox Last 24 Hr 97.0 F-99.4 F 81-93 16-26 118-149/70-109 95-100 General appearance: normal weight, no acute distress - Head Head exam: Present: normal inspection, normocephalic - Eye Eye exam: Present: other (lids and conjunctiva unremarkable). Absent: scleral icterus - ENT ENT exam: Present: normal exam, normal oropharynx - Neck Neck exam: Present: normal inspection - Respiratory Respiratory exam: Present: clear to auscultation bilaterally. Absent: rales, rhonchi, wheezes - Cardiovascular Cardiovascular exam: Present: regular rate and rhythm. Absent: diastolic murmur , JVD, systolic murmur - GI/Abdominal GI/Abdominal exam: Present: normal bowel sounds, soft. Absent: ascites, distended, mass, organomegaly, tenderness - Extremities Exam Extremities exam: Present: normal inspection, full ROM - Back Exam Back exam: Present: normal inspection - Neurological Exam Neurological exam: Present: altered - Psychiatric Psychiatric exam: Present: other - Skin Skin exam: Present: normal color, warm, dry Results - Labs CBC & BMP: 09/09/16 04:35 09/09/16 04:35 Lab Results: I have reviewed the past 24 hour labs <Moreno Duran - Last Filed: 09/09/16 18:18> Assessment and Plan (1) Malnutrition Status: Acute Current Visit: Yes Exam (Progress Note) - Constitutional Vitals: Period Temp Pulse Resp BP Sys/Wick Pulse Ox Last 24 Hr 97.0 F-99.4 F 67-93 - 92-149/57-85 97-100 Results - Labs CBC & BMP: 09/09/16 04:35 09/09/16 04:35
[2016-09-09] MEDS: PIPERACILLIN/TAZOBACTAM 3,375 MG in SODIUM CHLORIDE 0.9% 100 ML IV SCH ×2 (11:05→17:59)
[2016-09-09] MEDS: MAGNESIUM SULF RIDER 2 GM in PREMIX 1 EACH IV PRN (14:57)
[2016-09-09] MEDS ORDERED: SKIN HEALING OINT (AQUAPHOR) 50 GM TUBE TOP PRN (15:39)
[2016-09-09] MEDS: ACETAMINOPHEN 325 MG TABLET PO PRN (21:51)
[2016-09-09] MEDS: FEBUXOSTAT 80 MG TABLET PO SCH (21:51)
[2016-09-10] MEDS: PIPERACILLIN/TAZOBACTAM 3,375 MG in SODIUM CHLORIDE 0.9% 100 ML IV SCH ×3 (03:57→18:23)
[2016-09-10 05:43] LABS: Basophils % 0.7 % (0.0-0.8); Eosinophils # 0.1 10*3/uL (0.0-0.87); Eosinophils % 1.5 % (0.00-10.9); Hematocrit 28.2 VOL% (42.0-52.0); Hemoglobin 9.4 GM/DL (14.0-18.0); Immature Granulocytes % 0.7 %; Immature Granulocytes Absolute 0.04 #; Lymphocytes # 1.5 10*3/uL (1.4-4.0); Lymphocytes % 24.7 % (21.2-54.2); Mean Corpuscular HGB Conc 33.3 GM/DL (32-36); Mean Corpuscular Hemoglobin 29 PG (27-34); Mean Corpuscular Volume 86.5 FL (87-102); Monocytes # 0.7 10*3/uL (0.11-0.8); Neutrophils # 3.7 10*3/uL (1.4-7.4); Neutrophils % 61.4 % (38.7-73.9); Platelet Count 101 T/CUMM (130-400); Red Blood Count 3.26 MC/CUMM (3.8-5.5); Red Cell Distribution Width 14.9 % (9.3-17.3)
[2016-09-10 05:48] LABS: INR 1.5; PT Patient Result 16.6 SECS
[2016-09-10 06:09] LABS: Hypochromasia 1+; Microcytosis Slight; Platelet Estimate Decreased
--- NOTE | 2016-09-10 07:49 | Urology Progress Note ---
Urology - PN: Subj Interval history: The patient is having 300-350 mL residual urine. Continue intermittent cath 3 times a day Exam - Constitutional Vitals: Period Temp Pulse Resp BP Sys/Wick Pulse Ox Last 24 Hr 98.6 F-99.4 F 67-92 18- 92-149/57-77 97-99 Results - Labs CBC & BMP: 09/10/16 05:25 09/09/16 04:35
[2016-09-10] MEDS ORDERED: SODIUM CHLORIDE 0.9% 250 ML IV ONE (08:10)
[2016-09-10] MEDS: SODIUM BICARB INJ 50 MEQ, POTASSIUM CHLORIDE INJ 20 MEQ in DEXTROSE 5% 1,000 ML IV SCH ×2 (08:57→16:35)
[2016-09-10] MEDS: INSULIN LISPRO 100 UNIT/ML SUBCUT SCH ×4 (08:59→21:49)
[2016-09-10] MEDS: TAMSULOSIN 0.4 MG CAPSULE PO SCH (09:22)
[2016-09-10] MEDS: FINASTERIDE 5 MG TABLET PO SCH (09:22)
[2016-09-10] MEDS: BACITRACIN OINT 0.9 GM PACK TOP SCH (09:22)
[2016-09-10] MEDS: SODIUM HYPOCHLORITE 0.25% IRRIG 473 ML BOTTLE TOP SCH (09:22)
[2016-09-10] MEDS: COLLAGENASE OINT 30 GM TUBE TOP SCH (09:23)
[2016-09-10] MEDS: PANTOPRAZOLE 40 MG VIAL IV SCH (09:23)
[2016-09-10] MEDS: DESITIN 4OZ/NYSTATIN 15 GRAM MIXTURE PASTE TOP SCH ×2 (09:23→21:49)
[2016-09-10] MEDS ORDERED: LIDOCAINE 2% 5 ML VIAL ONE (09:45)
[2016-09-10] MEDS ORDERED: PROPOFOL 200 MG/20 ML VIAL IV ONE (09:45)
--- NOTE | 2016-09-10 10:01 | History and Physical Update ---
History and Physical Update - Physical Exam Mental Status: other (noncommunicative) Heart: regular rate and rhythm Lung: clear to auscultation Abdomen: within normal limits Vitals: within normal limits
--- NOTE | 2016-09-10 10:04 | Operative Note ---
Date of procedure: 09/10/16 Pre-op diagnosis: malnutrition Procedure: EGD with percutaneous endoscopic gastrostomy tube placement. 71-year-old gentleman with a malnutrition poor wound healing now for PEG tube placement to permit adequate nutrition. Informed consent was obtained patient's family. He was sedated with Mac anesthesia procedure protocol. Patient placed in the supine position with head of bed elevated 30 the Olympus flexible video upper endoscope was inserted oral cavity under direct vision the esophagus intubated. Findings: Esophagus-normal proximal mid esophageal mucosa distal esophagus normal. Stomach-normal insufflation normal mucosa to direct retroflex views of the body , fundus, cardia and antral stomach. Pylorus-normal Duodenum-normal. Scope withdrawn back into the stomach and appropriate area in the anterior abdominal wall transilluminated finger protrusion localize. Area was prepped and draped in sterile fashion and anesthetized 1/2 mL lidocaine. Needle was inserted in the stomach and endoscopically visualized. This was removed and a small scalpel incision was made through the skin through this an 18-gauge Intracath was inserted in the stomach a guidewire was passed grasped with polypectomy snare brought out via the mouth. Using standard pull traction technique a 20 [place] Ponsky PEG tube was pulled into's position and secured. Patient our procedure well his discharge recovery in good condition. Postop diagnosis: Malnutrition now status post successful placement of PEG tube. We'll initiate tube feedings monitor for signs symptoms or complications. Anesthesia: [facility] [place] Surgeon / Physician: Moreno Duran Estimated blood loss: none Specimens: none sent Condition: stable Disposition: post procedure unit Results - Labs CBC & BMP: 09/10/16 05:25 09/09/16 04:35 Discharge Plan - Discharge Medications No Action Ezetimibe [Zetia] 10 mg PO BEDTIME Cetirizine Tab [ZyrTEC Tab] 10 mg PO BEDTIME Febuxostat [Uloric] 80 mg PO BEDTIME Entecavir 0.5 mg PO DAILY Insulin Lispro [HumaLOG] See Protocol SUBCUT ACHS ml Colchicine 0.6 mg PO DAILY W/BREAKFAST PRN PRN Reason: Gout traMADol TAB [Ultram] 50 mg PO Q6H PRN #20 tablet PRN Reason: Pain Clarithromycin 500 mg PO BID Omeprazole 40 mg PO QAM Apixaban [Eliquis] 5 mg PO DAILY Minocycline [Minocin] 100 mg PO BID - Follow Up or Referral - Forms/Instructions
--- NOTE | 2016-09-10 10:29 | Anesthesia ---
Anesthesia Post OP - Post Ansesthetic Evaluation Patient seen in post op: Yes Resp: within normal limits CV: within normal limits Mental: within normal limits Temp: within normal limits Ecyh-Iv-Zreayvhbf: within normal limits Nausea and Vomiting: within normal limits Pain: within normal limits
--- NOTE | 2016-09-10 12:29 | Nephrology Progress Note ---
Nephrology - PN: Subj Interval history: Patient said hello this morning. Not much interaction otherwise. Physical exam general patient's chronically ill-appearing, heart is regular rate and rhythm, he has no pitting edema, lungs are clear to auscultation anteriorly, abdomen is soft with positive bowel sounds Assessment/plan 1. Acute renal failure-patient's creatinine is improving 2. Dementia 3. Diabetes mellitus continue present hypoglycemic therapy 4. Malnutrition-patient's to get a feeding tube placed today. 5. Hypotension-this patient had a systolic of around 65 this morning by automated cuff, repeat pressure with a manual cuff was around 90 on the systolic side. He did receive some Narco yesterday afternoon, he is also getting a infusion of mag sulfate presently, he is not on any antihypertensives. Exam (PN)-Nephrology - Vital Signs Vital signs: Period Temp Pulse Resp BP Sys/Wick Pulse Ox Last 24 Hr 98.6 F-99.7 F 74-116 14-25 89-110/50-064 96-100 - Lab 09/10/16 05:25 09/09/16 04:35 Most recent lab results Calcium 7.3 MG/DL (8.5-10.1) L 09/09/16 04:35 Magnesium 1.5 MG/DL (1.8-2.4) L 09/09/16 04:35 Assessment and Plan (1) Acute on chronic renal failure Status: Acute Assessment and plan: I agree with IV fluids as ordered. I mentioned to the patient's that a PEG feeding tube may ultimately be required. Current Visit: Yes (2) History of hypertension Status: Acute Assessment and plan: This patient has been having decreased blood pressure lately per the patient's , she has been holding his Diovan on an diuretic Current Visit: Yes (3) Dehydration Status: Resolved Current Visit: Yes (4) Hypokalemia Status: Resolved Assessment and plan: Continue IV replacement of potassium Current Visit: Yes (5) Chronic hepatitis B Status: Acute Assessment and plan: Patient is on chronic treatment for this with Baraclude Current Visit: No (6) Gastroparesis Status: Acute Current Visit: No (7) Diabetes mellitus Status: Chronic Current Visit: No Qualifiers: Diabetes mellitus type: type 2 (8) Dementia Status: Acute Assessment and plan: This patient's had a fairly rapid decline in his mental status over the past 8 months or so. He apparently saw a neurologist in [place] related to the dementia is seen in pro-ball[employer]'s. I'm not sure if the Reglan would cause such a prolonged dementia after a 10 day exposure as he had 6-8 months ago. Current Visit: Yes (9) Weight loss Status: Acute Assessment and plan: With his history of colon cancer and oriented that he may have a recurrence of this causing some weight loss. However this may be more result of his progressive dementia. I'll review his previous hospitalization for test that may have screened for this. Current Visit: Yes
--- NOTE | 2016-09-10 14:19 | Hospitalist Progress Note ---
<Salena Steven - Last Filed: 09/10/16 14:16> Assessment and Plan - Time spent with patient Time spent with patient: Less than 30 minutes (due to assessment, plan and doc) (1) Acute on chronic renal failure Status: Acute Assessment and plan: His creatinine is down to 2.3 from 5[address] Ruiz with nephrology following Current Visit: Yes (2) Dehydration Status: Resolved Current Visit: Yes (3) Hypokalemia Status: Resolved Current Visit: Yes (4) Decubital ulcer Status: Acute Assessment and plan: s/p debridement Current Visit: No Qualifiers: Pressure ulcer stage: stage II Qualified Code(s): L89.92 - Pressure ulcer of unspecified site, stage 2 (5) Gastroparesis Status: Acute Current Visit: No (6) Diabetes mellitus Status: Chronic Assessment and plan: glucoses typically under 150 today Current Visit: No Qualifiers: Diabetes mellitus type: type 2 (7) Hypertension Status: Chronic Current Visit: No Qualifiers: Hypertension type: essential hypertension Qualified Code(s): I10 - Essential (primary) hypertension (8) Weakness Status: Chronic Current Visit: No (9) Acute worsening of stage 3 chronic kidney disease Status: Acute Current Visit: Yes (10) Decubitus ulcer of sacral region, unstageable Status: Acute Current Visit: Yes (11) Decubitus ulcer, heel, left, unstageable Status: Acute Current Visit: Yes (12) Protein-calorie malnutrition, mild Status: Acute Current Visit: Yes (13) Chronic hepatitis B Status: Acute Current Visit: No Hospitalist: Subjective Interval history: Mr. Almanza is seen today lying in bed. He does open his eyes. He is s/p PEG placement today. Insertion site looks good. He has been slightly hypotensive at times and is IVF's. He has received 250 bolus earlier today as well as bolus in scope lab. He is requiring QID in and out caths. His urine is dark and concentrated. Will obtain a UA. [facility] approval is still pending precertification. He is on zosyn for wound. Continue to monitor along with consultants. Exam - Constitutional Vitals: Period Temp Pulse Resp BP Sys/Wick Pulse Ox Last 24 Hr 98.6 F-99.7 F 74-116 14-25 89-110/50-064 96-100 General appearance: normal weight, no acute distress - Head Head exam: Present: normal inspection, normocephalic - Eye Eye exam: Present: EOMI. Absent: scleral icterus Pupils: Present: TRACEY, normal accommodation - ENT ENT exam: Present: normal exam, normal oropharynx - Neck Neck exam: Present: normal inspection. Absent: lymphadenopathy - Respiratory Respiratory exam: Present: clear to auscultation bilaterally. Absent: accessory muscle use - Cardiovascular Cardiovascular exam: Present: regular rate and rhythm - GI/Abdominal GI/Abdominal exam: Present: normal bowel sounds, soft, other (PEG tube inserted today). Absent: tenderness - Extremities Exam Extremities exam: Present: other (left leg wrapped s/p debridement) - Back Exam Back exam: Present: normal inspection. Absent: muscle spasm - Neurological Exam Neurological exam: Present: altered - Skin Skin exam: Present: normal color, warm, dry, intact Results - Labs CBC & BMP: 09/10/16 05:25 09/09/16 04:35 Lab Results: I have reviewed the past 24 hour labs Quality Measures - VTE Contraindication to Pharmacological VTE Prophylaxis: Already on Theraputic Agent , No Prophylaxis Needed <Diaz Caputo Jr. - Last Filed: 09/10/16 20:05> Hospitalist: Subjective Interval history: Patient is now status post PEG tube placement. He is continuing to do acceptable. Awaiting approval for [email or web address]. Exam - Constitutional Vitals: Period Temp Pulse Resp BP Sys/Wick Pulse Ox Last 24 Hr 98.7 F-99.7 F 74-116 14-25 89-110/50-064 95-100 Results - Labs CBC & BMP: 09/10/16 05:25 09/09/16 04:35
[2016-09-10] MEDS: FEBUXOSTAT 80 MG TABLET PO SCH (21:49)
[2016-09-11] MEDS: SODIUM BICARB INJ 50 MEQ, POTASSIUM CHLORIDE INJ 20 MEQ in DEXTROSE 5% 1,000 ML IV SCH ×2 (02:13→18:45)
[2016-09-11] MEDS: PIPERACILLIN/TAZOBACTAM 3,375 MG in SODIUM CHLORIDE 0.9% 100 ML IV SCH ×2 (04:17→17:08)
[2016-09-11 05:46] LABS: Basophils # 0.1 10*3/uL (0.0-0.2); Basophils % 0.7 % (0.0-0.8); Eosinophils # 0.2 10*3/uL (0.0-0.87); Hematocrit 27.1 VOL% (42.0-52.0); Immature Granulocytes % 0.7 %; Immature Granulocytes Absolute 0.05 #; Lymphocytes # 1.8 10*3/uL (1.4-4.0); Lymphocytes % 24.2 % (21.2-54.2); Mean Corpuscular HGB Conc 33.2 GM/DL (32-36); Mean Corpuscular Hemoglobin 29 PG (27-34); Mean Corpuscular Volume 87.1 FL (87-102); Mean Platelet Volume 12.1 FL (9.6-12.0); Monocytes # 0.9 10*3/uL (0.11-0.8); Monocytes % 11.2 % (1.7-12.7); Neutrophils # 4.7 10*3/uL (1.4-7.4); Neutrophils % 61.2 % (38.7-73.9); Platelet Count 106 T/CUMM (130-400); Red Blood Count 3.11 MC/CUMM (3.8-5.5); Red Cell Distribution Width 15.1 % (9.3-17.3); White Blood Count 7.6 T/CUMM (4-12)
[2016-09-11 06:36] LABS: Magnesium 1.6 MG/DL (1.8-2.4); Phosphorous 2.5 MG/DL (2.5-4.9); Prealbumin < 3.0 MG/DL (20-40)
[2016-09-11 06:48] LABS: Albumin 1.4 G/DL (3.4-5.0); Bilirubin,Total 0.9 MG/DL (0.2-1.0); Calcium 7.7 MG/DL (8.5-10.1); Potassium 4.2 MMOL/L (3.5-5.1); Total Protein 5.8 G/DL (6.4-8.3)
--- NOTE | 2016-09-11 07:36 | Urology Progress Note ---
Urology - PN: Subj Interval history: Patient's residual urine is still elevated. I am going to increase the Flomax dose Exam - Constitutional Vitals: Period Temp Pulse Resp BP Sys/Wick Pulse Ox Last 24 Hr 99.1 F-100.5 F 18-116 14-25 89-112/50-064 94-100 Results - Labs CBC & BMP: 09/11/16 05:29 09/11/16 05:29
--- NOTE | 2016-09-11 08:39 | Gastrointestinal Progress Note ---
<Eliza De La Rosa - Last Filed: 09/11/16 08:36> Assessment and Plan (1) Malnutrition Status: Acute Assessment and plan: 09/11-Post PEG w/o complications. Tolerated well. Okay to start feedings this morning. Plan and addendum to follow by DR Duran 09/09-Minimal intake since yesterday. to discuss PEG tube with their children and decide soon. Plan and addendum to follow by Dr Duran. 09/08-Tolerating diet slightly better at present. No changes. No plans to proceed with feeding tube placement at present. Plan and addendum to follow by Dr Duran. Current Visit: Yes Gastroenterology - PN: Subj Interval history: CC: Inability to eat Pt is seen, somnolent with at side. He is post PEG placement yesterday and did well post operatively. He is having no apparent post procedure pain, abdominal binder in place. He is to start tube feedings today. He is also to go to [facility] upon discharge. Abdomen is soft, nontender. ROS: Denies SOB or chest pain Exam (Progress Note) - Constitutional Vitals: Period Temp Pulse Resp BP Sys/Wick Pulse Ox Last 24 Hr 99.1 F-100.5 F 18-116 14-25 89-112/50-064 92-100 General appearance: normal weight, no acute distress - Head Head exam: Present: normal inspection, normocephalic - Eye Eye exam: Present: other (lids and conjunctiva unremarakble). Absent: scleral icterus - ENT ENT exam: Present: normal exam, normal oropharynx - Neck Neck exam: Present: normal inspection - Respiratory Respiratory exam: Present: clear to auscultation bilaterally. Absent: rales, rhonchi, wheezes - Cardiovascular Cardiovascular exam: Present: regular rate and rhythm. Absent: diastolic murmur , JVD, systolic murmur - GI/Abdominal GI/Abdominal exam: Present: normal bowel sounds, soft. Absent: ascites, distended, mass, organomegaly, tenderness - Extremities Exam Extremities exam: Present: normal inspection, full ROM - Back Exam Back exam: Present: normal inspection - Neurological Exam Neurological exam: Present: alert, altered - Psychiatric Psychiatric exam: Present: flat affect - Skin Skin exam: Present: normal color, warm, dry Results - Labs CBC & BMP: 09/11/16 05:29 09/11/16 05:29 Lab Results: I have reviewed the past 24 hour labs <Moreno Duran - Last Filed: 09/11/16 14:26> Assessment and Plan (1) Malnutrition Status: Acute Current Visit: Yes Exam (Progress Note) - Constitutional Vitals: Period Temp Pulse Resp BP Sys/Wick Pulse Ox Last 24 Hr 99.1 F-100.5 F 18-92 17-20 96-112/50-64 92-98 Results - Labs CBC & BMP: 09/11/16 05:29 09/11/16 05:29
--- NOTE | 2016-09-11 09:28 | Hospitalist Progress Note ---
<Salena Steven - Last Filed: 09/11/16 09:26> Assessment and Plan - Time spent with patient Time spent with patient: Less than 30 minutes (1) Acute on chronic renal failure Status: Acute Assessment and plan: His creatinine is down to 2.3 from 5[address] Ruiz with nephrology following Current Visit: Yes (2) Dehydration Status: Resolved Current Visit: Yes (3) Hypokalemia Status: Resolved Current Visit: Yes (4) Decubital ulcer Status: Acute Assessment and plan: s/p debridement Current Visit: No Qualifiers: Pressure ulcer stage: stage II Qualified Code(s): L89.92 - Pressure ulcer of unspecified site, stage 2 (5) Gastroparesis Status: Acute Current Visit: No (6) Diabetes mellitus Status: Chronic Assessment and plan: glucoses typically under 150 today Current Visit: No Qualifiers: Diabetes mellitus type: type 2 (7) Hypertension Status: Chronic Current Visit: No Qualifiers: Hypertension type: essential hypertension Qualified Code(s): I10 - Essential (primary) hypertension (8) Weakness Status: Chronic Current Visit: No (9) Acute worsening of stage 3 chronic kidney disease Status: Acute Current Visit: Yes (10) Decubitus ulcer of sacral region, unstageable Status: Acute Current Visit: Yes (11) Decubitus ulcer, heel, left, unstageable Status: Acute Current Visit: Yes (12) Protein-calorie malnutrition, mild Status: Acute Current Visit: Yes (13) Chronic hepatitis B Status: Acute Current Visit: No Hospitalist: Subjective Interval history: Mr. Almanza was seen this morning lying in bed with at bedside. He has had a low grade temp at 100.3. She states that he will drink sips of water. He is on Zosyn for his wound cx's. Lungs clear. PEG site looks good. Precertification from [facility] is still pending. Hope to get that approval soon and he will be able to be transferred there. Exam - Constitutional Vitals: Period Temp Pulse Resp BP Sys/Wick Pulse Ox Last 24 Hr 99.1 F-100.5 F 18-116 14-20 89-112/50-75 92-100 General appearance: normal weight, no acute distress - Head Head exam: Present: normal inspection, normocephalic - Eye Eye exam: Present: EOMI. Absent: scleral icterus Pupils: Present: TRACEY, normal accommodation - ENT ENT exam: Present: normal exam, normal oropharynx - Neck Neck exam: Present: normal inspection. Absent: lymphadenopathy - Respiratory Respiratory exam: Present: clear to auscultation bilaterally. Absent: accessory muscle use - Cardiovascular Cardiovascular exam: Present: regular rate and rhythm - GI/Abdominal GI/Abdominal exam: Present: normal bowel sounds, soft, other (abd binder on s/p PEG- site looks good). Absent: tenderness - Extremities Exam Extremities exam: Present: other (left leg wrapped s/p debridement). Absent: edema - Back Exam Back exam: Present: normal inspection. Absent: muscle spasm - Neurological Exam Neurological exam: Present: altered (nonconversive, but opens eyes) - Psychiatric Psychiatric exam: Present: flat affect - Skin Skin exam: Present: normal color, warm, dry, intact Results - Labs CBC & BMP: 09/11/16 05:29 09/11/16 05:29 Lab Results: I have reviewed the past 24 hour labs Quality Measures - VTE Contraindication to Pharmacological VTE Prophylaxis: Already on Theraputic Agent , No Prophylaxis Needed <Diaz Caputo Jr. - Last Filed: 09/11/16 13:31> Hospitalist: Subjective Interval history: At this time patient is doing well PEG site looks good. We are awaiting approval from [facility] for admission. Exam - Constitutional Vitals: Period Temp Pulse Resp BP Sys/Wick Pulse Ox Last 24 Hr 99.1 F-100.5 F 18-92 17-20 96-112/50-64 92-98 Results - Labs CBC & BMP: 09/11/16 05:29 09/11/16 05:29
[2016-09-11] MEDS: MAGNESIUM SULF RIDER 2 GM in PREMIX 1 EACH IV PRN (09:45)
[2016-09-11] MEDS: PANTOPRAZOLE 40 MG VIAL IV SCH (09:48)
[2016-09-11] MEDS: INSULIN LISPRO 100 UNIT/ML SUBCUT SCH ×5 (09:48→23:57)
[2016-09-11] MEDS: TAMSULOSIN 0.4 MG CAPSULE PO SCH ×3 (09:48→20:37)
[2016-09-11] MEDS: FINASTERIDE 5 MG TABLET PO SCH (09:49)
--- NOTE | 2016-09-11 10:09 | Nephrology Progress Note ---
Nephrology - PN: Subj Interval history: Patient weakly tried to raise his hand upon my greeting him this morning. He was nonverbal. Physical exam general patient's chronically ill-appearing, heart is regular rate and rhythm, he has no pitting edema, lungs are clear to auscultation anteriorly, abdomen is soft with positive bowel sounds Assessment/plan 1. Acute renal failure-patient's creatinine is 2.6 mg/dL this is around his baseline 2. Dementia 3. Diabetes mellitus this controlled 4. Malnutrition-patient has a feeding tube in place now. Exam (PN)-Nephrology - Vital Signs Vital signs: Period Temp Pulse Resp BP Sys/Wick Pulse Ox Last 24 Hr 99.1 F-100.5 F 18-110 17-20 89-112/50-75 92-100 - Lab 09/11/16 05:29 09/11/16 05:29 Most recent lab results Calcium 7.7 MG/DL (8.5-10.1) L 09/11/16 05:29 Phosphorus 2.5 MG/DL (2.5-4.9) 09/11/16 05:29 Magnesium 1.6 MG/DL (1.8-2.4) L 09/11/16 05:29 Assessment and Plan (1) Acute on chronic renal failure Status: Acute Assessment and plan: I agree with IV fluids as ordered. I mentioned to the patient's that a PEG feeding tube may ultimately be required. Current Visit: Yes (2) History of hypertension Status: Acute Assessment and plan: This patient has been having decreased blood pressure lately per the patient's , she has been holding his Diovan on an diuretic Current Visit: Yes (3) Dehydration Status: Resolved Current Visit: Yes (4) Hypokalemia Status: Resolved Assessment and plan: Continue IV replacement of potassium Current Visit: Yes (5) Chronic hepatitis B Status: Acute Assessment and plan: Patient is on chronic treatment for this with Baraclude Current Visit: No (6) Gastroparesis Status: Acute Current Visit: No (7) Diabetes mellitus Status: Chronic Current Visit: No Qualifiers: Diabetes mellitus type: type 2 (8) Dementia Status: Acute Assessment and plan: This patient's had a fairly rapid decline in his mental status over the past 8 months or so. 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 I'm not sure if the Reglan would cause such a prolonged dementia after a 10 day exposure as he had 6-8 months ago. Current Visit: Yes (9) Weight loss Status: Acute Assessment and plan: With his history of colon cancer and oriented that he may have a recurrence of this causing some weight loss. However this may be more result of his progressive dementia. I'll review his previous hospitalization for test that may have screened for this. Current Visit: Yes
--- NOTE | 2016-09-11 10:17 | General Surgery Progress Note ---
Assessment and Plan - Time spent with patient Time spent with patient: Less than 30 minutes (1) Decubitus ulcer of sacral region, unstageable Status: Acute Assessment and plan: 09/11/16 Wounds stable-awaiting final cultures and then hopefully transfer to [facility], pending insurance approval. He's on Zosyn, which gives us good coverage for what's emerging, so we favor staying with this for now. We've ordered a venous doppler to rule out DVT of the left upper extremity. It's OK to restart his Lovenox/DC SCDs at this point since both his invasive procedures are now completed. 09/09/16 Pt is stable post op. I spoke with his at length; she's amenable to [facility] for continued detention wound care. Preliminary C&S shows Gram positives, which is no surprise, given the character of the 2nd left toe drainage. Certainly we still need to watch his nutrition closely, and she's got a calorie count in progress while considering a PEG placement. We'll continue to follow while waiting for final cultures. We will start good skin prep to periwound skin excoriation, add Santyl to this area and continue offloading. I don't favor aggressive debridement of this area right now, although it will likely need debridement at some point. The periwound excoriation should heal if we can address the moisture issue. Will watch stools for the possibility of C. dificile since he's recently been on antibiotics. Current Visit: Yes (2) Decubitus ulcer, heel, left, unstageable Status: Acute Assessment and plan: Unstageable heel decubitus-for surgical debridement in am. This was discussed with his , who is agreeable. Current Visit: Yes (3) Protein-calorie malnutrition, mild Status: Acute Assessment and plan: This has already been addressed with his , who is considering PEG. I think we will need to progress to this sooner rather than later, if we are to improve his healing status. Current Visit: Yes (4) Diabetic foot infection Status: Acute Assessment and plan: He appears to have adequate blood flow to the foot and we are planning debridement and drainage tomorrow, although the is aware we still may not be able to ultimately save the left 2nd toe, owing to extensive infection and tissue loss. She is agreeable to the debridement and we can at least clear the area of necrotic bioburden, and facilitate healthy tissue growth before proceeding with any amputation decision. She is amenable to this. He will need dedicated wound care and compression post op. We've cultured the drainage plus will obtain tissue cultures in the OR tomorrow. Current Visit: Yes Subjective Patient reports: Present: other (Awake, looking around; denies pain when asked.) Exam - Constitutional Vitals: Period Temp Pulse Resp BP Sys/Wick Pulse Ox Last 24 Hr 99.1 F-100.5 F 18-110 17-20 89-112/50-75 92-100 General appearance: no acute distress - GI/Abdominal GI/Abdominal exam: Present: hypoactive bowel sounds - Extremities Exam Extremities exam: Present: other (New left upper extremity edema, generalized over the entire arm to fingertips. 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 Good pulse.) Results - Labs CBC & BMP: 09/11/16 05:29 09/11/16 05:29 Lab Results: I have reviewed the past 24 hour labs (Labs noted. Micro preliminary shows 2 gram positives in addition to Serratia marcescens.) Quality Measures - VTE Contraindication to Pharmacological VTE Prophylaxis: Already on Theraputic Agent , No Prophylaxis Needed
--- NOTE | 2016-09-11 13:29 | Ultrasound Report ---
Exam: US venous doppler UE LT Date: 09/11/2016 10:13 AM Indication: Pain and swelling left upper extremity. History of previous DVT basilic vein Comparison: 08/10/2016 Findings: Grayscale color flow Doppler duplex imaging was performed with spectral waveform analysis the with real-time ultrasound imaging with image stored and captured. Left internal jugular, subclavian, axillary, brachial, cephalic veins are patent with normal augmentation and compression. There is noncompressibility in the basilic vein the medial arm just above the elbow. Impression: 1. 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 2. No other areas of deep vein thrombosis noted. PROCEDURE INTERPRETED AT [facility] DEPARTMENT OF RADIOLOGY Final Report Signed by: Dr. Brenden Saldana
[2016-09-11] MEDS: CIPROFLOXACIN INJ 400 MG in PREMIX 1 EACH IV SCH (14:40)
[2016-09-11] MEDS: COLLAGENASE OINT 30 GM TUBE TOP SCH (14:41)
[2016-09-11] MEDS: BACITRACIN OINT 0.9 GM PACK TOP SCH (14:42)
[2016-09-11] MEDS: SODIUM HYPOCHLORITE 0.25% IRRIG 473 ML BOTTLE TOP SCH (14:42)
[2016-09-11] MEDS: DESITIN 4OZ/NYSTATIN 15 GRAM MIXTURE PASTE TOP SCH ×2 (14:42→20:45)
[2016-09-11] MEDS: FEBUXOSTAT 80 MG TABLET PO SCH (20:45)
[2016-09-12] MEDS: PIPERACILLIN/TAZOBACTAM 3,375 MG in SODIUM CHLORIDE 0.9% 100 ML IV SCH ×3 (02:49→17:12)
[2016-09-12] MEDS: CIPROFLOXACIN INJ 400 MG in PREMIX 1 EACH IV SCH ×2 (02:49→13:54)
[2016-09-12] MEDS: SODIUM BICARB INJ 50 MEQ, POTASSIUM CHLORIDE INJ 20 MEQ in DEXTROSE 5% 1,000 ML IV SCH ×3 (05:15→17:00)
[2016-09-12] MEDS: INSULIN LISPRO 100 UNIT/ML SUBCUT SCH ×3 (07:02→18:16)
--- NOTE | 2016-09-12 08:15 | Pulmonology Progress Note ---
Pulmonary - PN: Subj Interval history: without complaints today Exam (Progress Note) - Constitutional Vitals: Period Temp Pulse Resp BP Sys/Wick Pulse Ox Last 24 Hr 99.2 F-99.7 F 89-105 16-20 95-118/56-65 96-99 Exam: Constitutional: General appearance is normal Eyes: Pupils equal round react to light and accommodation conjunctiva and lids are normal Neck: supple without masses Respiratory: Respiratory effort is normal. Lungs are clear to auscultation. Resonant to percussion. Cardiac: Regular rate and rhythm without murmur rub or gallop. PMI at the midclavicular line by palpation. Carotid arteries 2+ palpation no bruits GI: Bowel sounds normoactive, no tenderness or rebound tenderness, no organomegaly Extremities: no clubbing cyanosis or edema Results - Labs CBC & BMP: 09/11/16 05:29 09/11/16 05:29 Assessment and Plan (1) Dehydration Status: Resolved Current Visit: Yes (2) Acute on chronic renal failure Status: Acute Assessment and plan: He seems to be doing about the same or having some trouble with access he's feeling go to do of [facility] on Wednesday is multiple issues including renal disease resolved dehydration and hypokalemia decubitus ulcers gastroparesis diabetes mellitus kidney disease as mentioned decubitus malnutrition continue current plan of therapy no new recommendations Current Visit: Yes
[2016-09-12] MEDS: FINASTERIDE 5 MG TABLET PO SCH (09:00)
[2016-09-12] MEDS: PANTOPRAZOLE 40 MG VIAL IV SCH (09:00)
[2016-09-12] MEDS: TAMSULOSIN 0.4 MG CAPSULE PO SCH ×3 (09:02→22:00)
--- NOTE | 2016-09-12 10:03 | Urology Progress Note ---
Urology - PN: Subj Interval history: The last residual was 100cc. Patient doing better with voiding Exam - Constitutional Vitals: Period Temp Pulse Resp BP Sys/Wick Pulse Ox Last 24 Hr 98.1 F-99.7 F 89-105 16-20 95-118/56-65 96-100 Results - Labs CBC & BMP: 09/11/16 05:29 09/11/16 05:29
[2016-09-12] MEDS: SODIUM HYPOCHLORITE 0.25% IRRIG 473 ML BOTTLE TOP SCH (11:25)
[2016-09-12] MEDS: DESITIN 4OZ/NYSTATIN 15 GRAM MIXTURE PASTE TOP SCH ×2 (11:25→22:00)
[2016-09-12] MEDS: BACITRACIN OINT 0.9 GM PACK TOP SCH (11:25)
[2016-09-12] MEDS: COLLAGENASE OINT 30 GM TUBE TOP SCH (11:25)
--- NOTE | 2016-09-12 11:32 | Pulmonology Progress Note ---
Pulmonary - PN: Subj Interval history: This is a spunky 89-year-old white female who has had a mild stroke. She was up and moving around this morning. She was very happy with her improvement. She had no complaints and she had no requests. Labs been reviewed. Medicines been reviewed. Physical exam. Vital signs. See below General. No distress Psychiatric. Oriented 3. Neurological. Cranial nerves are intact with some decreased hearing acuity. Patient moves all fours well. Her gait is steady. Face is symmetrical. Eyes are normal. Lips and tongue are normal. Neck. Symmetrical. No meningismus. Lymphatics. No submandibular cervical supraclavicular adenopathy. Chest. Clear Heart. No gallop Abdomen. Positive bowel sounds Extremities no edema The remainder of the physical exam is negative. Plan. Continue present regimen this patient is improving Exam (Progress Note) - Constitutional Vitals: Period Temp Pulse Resp BP Sys/Wick Pulse Ox Last 24 Hr 98.1 F-99.7 F 89-105 16-20 95-118/56-65 96-100 Results - Labs CBC & BMP: 09/11/16 05:29 09/11/16 05:29
--- NOTE | 2016-09-12 13:48 | Event Note ---
The patient's wounds do not require any further debridement. I evaluated his left leg wounds and his sacral decubitus wound. The patient is going to [facility] on Wednesday. I will see him as needed rest this weekend.
[2016-09-12] MEDS: FEBUXOSTAT 80 MG TABLET PO SCH (22:00)
[2016-09-13] MEDS: ACETAMINOPHEN 325 MG TABLET PO PRN ×2 (00:58→10:11)
[2016-09-13] MEDS: PIPERACILLIN/TAZOBACTAM 3,375 MG in SODIUM CHLORIDE 0.9% 100 ML IV SCH ×3 (00:58→16:39)
[2016-09-13] MEDS: INSULIN LISPRO 100 UNIT/ML SUBCUT SCH ×4 (00:58→18:52)
[2016-09-13] MEDS: SODIUM BICARB INJ 50 MEQ, POTASSIUM CHLORIDE INJ 20 MEQ in DEXTROSE 5% 1,000 ML IV SCH ×2 (03:29→14:56)
[2016-09-13 06:04] LABS: Basophils # 0.1 10*3/uL (0.0-0.2); Basophils % 0.7 % (0.0-0.8); Eosinophils # 0.2 10*3/uL (0.0-0.87); Hematocrit 24.8 VOL% (42.0-52.0); Hemoglobin 8.3 GM/DL (14.0-18.0); Lymphocytes % 20.7 % (21.2-54.2); Mean Corpuscular HGB Conc 33.5 GM/DL (32-36); Mean Corpuscular Hemoglobin 29 PG (27-34); Mean Corpuscular Volume 87.3 FL (87-102); Mean Platelet Volume 12.8 FL (9.6-12.0); Monocytes # 1.1 10*3/uL (0.11-0.8); Monocytes % 11.7 % (1.7-12.7); Neutrophils # 6.2 10*3/uL (1.4-7.4); Neutrophils % 63.9 % (38.7-73.9); Platelet Count 124 T/CUMM (130-400); Red Blood Count 2.84 MC/CUMM (3.8-5.5); Red Cell Distribution Width 15.1 % (9.3-17.3); White Blood Count 9.7 T/CUMM (4-12)
[2016-09-13 06:39] LABS: Albumin 1.1 G/DL (3.4-5.0); Bilirubin,Total 0.7 MG/DL (0.2-1.0); Calcium 8.3 MG/DL (8.5-10.1); Osmolality,Calculated 300.3 MOS/KG (273-304); Potassium 4.2 MMOL/L (3.5-5.1); Total Protein 5.5 G/DL (6.4-8.3)
--- NOTE | 2016-09-13 08:06 | Hospitalist Progress Note ---
Assessment and Plan (1) Dehydration Status: Resolved Current Visit: Yes (2) Acute on chronic renal failure Status: Acute Assessment and plan: He seems to be doing about the same or having some trouble with access he's feeling go to do of [facility] on Wednesday is multiple issues including renal disease resolved dehydration and hypokalemia decubitus ulcers gastroparesis diabetes mellitus kidney disease as mentioned decubitus malnutrition continue current plan of therapy no new recommendations 09/13 patient without complaints today continues to improve to [facility] tomorrow no change in current medical regimen Current Visit: Yes Hospitalist: Subjective Interval history: Patient without complaints this morning apparently he is going to [facility] tomorrow Exam - Constitutional Vitals: Period Temp Pulse Resp BP Sys/Wick Pulse Ox Last 24 Hr 97.6 F-100.8 F 88-91 16-18 105-124/51-60 91-98 Exam: Constitutional: General appearance is normal Eyes: Pupils equal round react to light and accommodation conjunctiva and lids are normal Neck: supple without masses Respiratory: Respiratory effort is normal. Lungs are clear to auscultation. Resonant to percussion. Cardiac: Regular rate and rhythm without murmur rub or gallop. PMI at the midclavicular line by palpation. Carotid arteries 2+ palpation no bruits GI: Bowel sounds normoactive, no tenderness or rebound tenderness, no organomegaly Extremities: no clubbing cyanosis or edema Results - Labs CBC & BMP: 09/13/16 05:33 09/13/16 05:34 Quality Measures - VTE Contraindication to Pharmacological VTE Prophylaxis: Already on Theraputic Agent , No Prophylaxis Needed
[2016-09-13] MEDS: CIPROFLOXACIN INJ 400 MG in PREMIX 1 EACH IV SCH ×2 (10:10→21:54)
[2016-09-13] MEDS: PANTOPRAZOLE 40 MG VIAL IV SCH (10:10)
[2016-09-13] MEDS: APIXABAN 5 MG TABLET PO SCH (10:12)
[2016-09-13] MEDS: FINASTERIDE 5 MG TABLET PO SCH (10:12)
--- NOTE | 2016-09-13 10:24 | Urology Progress Note ---
Urology - PN: Subj Interval history: Last residual 400 cc. Continue in and out cath 3 times a day Exam - Constitutional Vitals: Period Temp Pulse Resp BP Sys/Wick Pulse Ox Last 24 Hr 97.6 F-100.8 F 88-91 16-18 105-124/51-60 91-98 Results - Labs CBC & BMP: 09/13/16 05:33 09/13/16 05:34
[2016-09-13] MEDS: SODIUM HYPOCHLORITE 0.25% IRRIG 473 ML BOTTLE TOP SCH (16:10)
[2016-09-13] MEDS: BACITRACIN OINT 0.9 GM PACK TOP SCH (16:10)
[2016-09-13] MEDS: DESITIN 4OZ/NYSTATIN 15 GRAM MIXTURE PASTE TOP SCH ×2 (16:11→21:55)
[2016-09-13] MEDS: COLLAGENASE OINT 30 GM TUBE TOP SCH (16:11)
[2016-09-13] MEDS: TAMSULOSIN 0.4 MG CAPSULE PO SCH ×3 (16:11→21:53)
[2016-09-13 20:14] LABS: Apearance,Urine Slightly Hazy (Clear); Bilirubin,Urine Negative (Negative); Blood, Urine Small mg/dL (Negative); Glucose,Urine (UA) 50 mg/dL (Negative); Ketones,Urine Negative (Negative); Mucus,Urine Occasional /LPF (Occasional); Nitrite,Urine Negative (Negative); Protein,Urine Negative; Squamous Epithelial Cell,Urine Occasional /HPF (0-10); Urine Color Yellow (Yellow); Urine Specific Gravity 1.013 (1.001-1.035); Urine Urobilinogen < 2.0 EU/DL (0.2-1.0); WBC,Urine 1 /HPF (0-6)
[2016-09-13] MEDS: FEBUXOSTAT 80 MG TABLET PO SCH (21:55)
[2016-09-14] MEDS: SODIUM BICARB INJ 50 MEQ, POTASSIUM CHLORIDE INJ 20 MEQ in DEXTROSE 5% 1,000 ML IV SCH ×2 (02:11→11:02)
[2016-09-14] MEDS: PIPERACILLIN/TAZOBACTAM 3,375 MG in SODIUM CHLORIDE 0.9% 100 ML IV SCH ×2 (02:13→10:58)
[2016-09-14] MEDS: INSULIN LISPRO 100 UNIT/ML SUBCUT SCH ×2 (02:22→06:52)
[2016-09-14 06:22] LABS: Basophils # 0.1 10*3/uL (0.0-0.2); Basophils % 0.6 % (0.0-0.8); Eosinophils # 0.1 10*3/uL (0.0-0.87); Eosinophils % 1.2 % (0.00-10.9); Hematocrit 26.7 VOL% (42.0-52.0); Immature Granulocytes % 1.4 %; Immature Granulocytes Absolute 0.17 #; Lymphocytes # 2.5 10*3/uL (1.4-4.0); Lymphocytes % 21.1 % (21.2-54.2); Mean Corpuscular HGB Conc 33.7 GM/DL (32-36); Mean Corpuscular Hemoglobin 29 PG (27-34); Mean Corpuscular Volume 86.7 FL (87-102); Mean Platelet Volume 11.9 FL (9.6-12.0); Monocytes # 1.3 10*3/uL (0.11-0.8); Monocytes % 10.9 % (1.7-12.7); Neutrophils # 7.6 10*3/uL (1.4-7.4); Neutrophils % 64.8 % (38.7-73.9); Platelet Count 146 T/CUMM (130-400); Red Blood Count 3.08 MC/CUMM (3.8-5.5); Red Cell Distribution Width 15.1 % (9.3-17.3); White Blood Count 11.7 T/CUMM (4-12)
--- NOTE | 2016-09-14 07:42 | Urology Progress Note ---
Urology - PN: Subj Interval history: Last catheterization the patient could only void a few drops and he had 600 cc residual Exam - Constitutional Vitals: Period Temp Pulse Resp BP Sys/Wick Pulse Ox Last 24 Hr 97.6 F-100.1 F 86-94 16-20 90-130/54-72 94-100 Results - Labs CBC & BMP: 09/14/16 06:10 09/13/16 05:34
--- NOTE | 2016-09-14 08:07 | General Surgery Progress Note ---
Assessment and Plan - Time spent with patient Time spent with patient: Less than 30 minutes (1) Decubitus ulcer of sacral region, unstageable Status: Acute Assessment and plan: 09/14/2016 sacral ulcer I think is stable. Still not completely staged with probably as a stage III at this point. There remains some dark tissue present but I think it looks in good shape that the Santyl may help us preserve a little bit of this tissue not have his larger wound as we anticipated. Current Visit: Yes (2) Decubitus ulcer, heel, left, unstageable Status: Acute Assessment and plan: 09/14/2016 The ulcers of the left lower extremity seem to be in pretty good shape although we have not had is consistent wound care as I anticipated. Couple of the ulcers did not have good dressings on them and are little bit dry. The larger ulcer of the heel is moist and has some sloughing material but feel like it looks a little better than it did the other day and may have a little early granulation tissue. The ulcers of the legs are stage III and the ulcer of the heel is a stage IV. Current Visit: Yes Subjective Patient reports: Present: no new complaints, tolerating liquids well, bowel movement, afebrile Exam - Constitutional Vitals: Period Temp Pulse Resp BP Sys/Wick Pulse Ox Last 24 Hr 97.6 F-100.1 F 86-94 16-20 90-130/51-72 94-100 General appearance: mild distress - Head Head exam: Present: normal inspection - ENT ENT exam: Present: normal exam - Neck Neck exam: Present: normal inspection - Respiratory Respiratory exam: Present: rales - Cardiovascular Cardiovascular exam: Present: RRR - GI/Abdominal GI/Abdominal exam: Present: hypoactive bowel sounds, soft, other (Gastrostomy tube functioning well). Absent: tenderness - Extremities Exam Extremities exam: Present: other (Ulcers of the lateral aspect of the leg are clean and dry with no infection. Ulcer of the left lateral foot has not had a good dressing on it and it is a little bit dry at this time. Ulcer of the second toe is doing well looks in good shape at this time with good granulating tissue present. The ulcer of the heel is moist at this time there is some sloughing material about it but think we may have a little early granulation tissue starting to show.) - Back Exam Back exam: Present: other (Sacral wound remains clean still a little bit dark but does not look as bad as initially anticipated.) - Neurological Exam Neurological exam: Present: altered - Skin Skin exam: Present: normal color, warm, dry Results - Labs CBC & BMP: 09/14/16 06:10 09/13/16 05:34 Lab Results: I have reviewed the past 24 hour labs Quality Measures - VTE Contraindication to Pharmacological VTE Prophylaxis: Already on Theraputic Agent , No Prophylaxis Needed Specialty Discharge - Follow Up or Referrals Follow up with: Delgado Gallo MD [Physician] - (We will follow at [facility])
--- NOTE | 2016-09-14 10:03 | Post Interventional Procedure ---
Pre-op diagnosis: soft tissue/skin ulcerations Post-op diagnosis: same Procedure: PICC line placement Contrast: none Flouroscopy: 0.2 min Radiologist: Lázaro Molina Anesthesia: local Specimens: none sent Estimated blood loss: minimal (1 ml) Complications: none Condition: stable Description/Findings: 5 Tajik dual lumen power PICC line placed via the left basilic vein. Catheter is ready for use. Assessment and Plan - Time spent with patient Time spent with patient: Less than 30 minutes
--- NOTE | 2016-09-14 10:14 | Discharge Summary ---
Hospital Course - Hospital Course Hospital Course: Mr. Almanza is a 71-year-old -[place] male who presented to our ER on 09/03/2016. He was brought in by his and said he had been weakness 2 days. Patient did not contribute any history. She says that his appetite hasn' t been good. She informed us that he had a history of gastroparesis but his lack of appetite is gotten worse. reported at the time that all of this is sleep. There was no nausea and vomiting reported he is diabetic and has a wound to his left foot and sacral decubitus per his . His potassium was low on admission at 2.6 with creatinine of 5.4. We consult to nephrology, gastroenterology, general surgery and urology in this hospitalization. Certainly follow along and helped us with wound care. Patient was taken to the OR on September 08 and his wounds were debrided. Patient was taken to the GI lab on September 13 and he had a PEG placed. During this weekend patient had pulled out his IV access and was became a difficult stick therefore felt a PICC line would be appropriate for the patient since she is can receive long- term antibiotics. adoption services manager was consult and arrangements were made to transfer the patient to [facility] to continuation of his IV treatment for his wounds. He is Ms. Hill benefit from the acute care hospital. [facility] is [facility]. Specialty Discharge - Follow Up or Referrals Follow up with: Delgado Gallo MD [Physician] - (We will follow at [facility]) Discharge Plan - Discharge Data Disposition: Disch[facility] Condition at Discharge: Stable - Discharge Medications New Entecavir [Entecavir] 0.5 mg PO DAILY Collagenase Oint [Santyl Oint] 1 applic TOP DAILY applic Glucagon 1 mg IM PRN PRN #0 vial PRN Reason: Hypoglycemia w/o IV access Insulin Lispro [HumaLOG] 0 unit SUBCUT Q6H unit Potassium Chloride Sal 10 meq IV .PER PROTOCOL PRN #0 PRN Reason: Per Protocol Tamsulosin [Flomax] 0.4 mg PO BID capsule Acetaminophen Tab [Tylenol Tab] 325 mg PO Q4H PRN #0 tablet PRN Reason: fever, headache/body aches Ciprofloxacin Inj [Cipro Inj] 400 mg IV Q12H Dextrose 50% [D50] 25 gm IV PRN PRN #0 vial PRN Reason: Hypoglycemia with IV access Docusate Sodium Cap [Colace Cap] 100 mg PO BID PRN #0 capsule PRN Reason: Constipation Finasteride [Proscar] 5 mg PO DAILY tablet HYDROcodone/ACETAMIN 7.5-325 [Elroy 7.5-325] 1 tablet PO Q4H PRN #0 tablet PRN Reason: Pain Moderate (4-7) Heparin Lock Flush 50 units IV PRN PRN #0 syringe PRN Reason: central line lock Pantoprazole Inj [Protonix Inj] 40 mg IV DAILY vial Piperacillin/Tazobactam [Zosyn] 3,375 mg IV Q8H vial Skin Healing Oint (Aquaphor) [Aquaphor] 1 applic TOP PRN PRN #0 applic PRN Reason: Dry Skin Sodium Bicarb Inj 50 meq IV .[id number] vial Sodium Hypochlorite 0.25% Irr [Dakins 1/2 Strength 0.25% Soln] 1 applic TOP DAILY applic Tamsulosin [Flomax] 0.4 mg PO DAILY capsule Continue Ezetimibe [Zetia] 10 mg PO BEDTIME Cetirizine Tab [ZyrTEC Tab] 10 mg PO BEDTIME Febuxostat [Uloric] 80 mg PO BEDTIME Colchicine 0.6 mg PO DAILY W/BREAKFAST PRN PRN Reason: Gout Apixaban [Eliquis] 5 mg PO DAILY Minocycline [Minocin] 100 mg PO BID Discontinued Entecavir 0.5 mg PO DAILY Insulin Lispro [HumaLOG] See Protocol SUBCUT ACHS ml traMADol TAB [Ultram] 50 mg PO Q6H PRN #20 tablet PRN Reason: Pain Clarithromycin 500 mg PO BID Omeprazole 40 mg PO QAM - Follow Up or Referral Follow Up: Delgado Gallo MD [Physician] - (We will follow at [facility]) - Forms/Instructions Exam - Constitutional Vitals: Period Temp Pulse Resp BP Sys/Wick Pulse Ox Last 24 Hr 97.6 F-100.1 F 86-94 16-20 90-130/49-72 94-100 Constitutional: General appearance is normal Eyes: Pupils equal round react to light and accommodation conjunctiva and lids are normal Neck: supple without masses Respiratory: Respiratory effort is normal. Lungs are clear to auscultation. Resonant to percussion. Cardiac: Regular rate and rhythm without murmur rub or gallop. PMI at the midclavicular line by palpation. Carotid arteries 2+ palpation no bruits GI: Bowel sounds normoactive, no tenderness or rebound tenderness, no organomegaly Extremities: no clubbing cyanosis or edema Discharge Results Procedures and tests throughout hospitalization: Pending Orders 09/06/16 18:00 Occult Blood, Stool Stat 09/07/16 Single Donor Platelets Routine 09/14/16 US guide vascular access Routine 09/14/16 07:00 IR PICC line insertion Routine Labs on day of discharge: Labs from last 24 hours 09/14/16 09/14/16 09/14/16 06:47 06:10 02:10 WBC 11.7 RBC 3.08 L Hgb 9.0 L Hct 26.7 L MCV 86.7 L MCH 29 MCHC 33.7 RDW 15.1 Plt Count 146 MPV 11.9 Neut % (Auto) 64.8 Lymph % (Auto) 21.1 L Piute % (Auto) 10.9 Eos % (Auto) 1.2 Baso % (Auto) 0.6 Neut # (Auto) 7.6 H Lymph # (Auto) 2.5 Piute # (Auto) 1.3 H Eos # (Auto) 0.1 Baso # (Auto) 0.1 Immature Gran % 1.4 Nucleated RBC % 0.0 Immature Gran # 0.17 Nucleated RBCs # 0.00 POC Glucose 312 H 365 H Urine Color Urine Appearance Urine pH Ur Specific Orient Urine Protein Urine Glucose (UA) Urine Ketones Urine Blood Urine Nitrate Urine Bilirubin Urine Urobilinogen Urine Leukocytes Urine WBC Ur Squamous Epith Cells Urine Mucus Ur Culture Indicated? 09/13/16 09/13/16 09/13/16 18:07 17:00 12:22 WBC RBC Hgb Hct MCV MCH MCHC RDW Plt Count MPV Neut % (Auto) Lymph % (Auto) Piute % (Auto) Eos % (Auto) Baso % (Auto) Neut # (Auto) Lymph # (Auto) Piute # (Auto) Eos # (Auto) Baso # (Auto) Immature Gran % Nucleated RBC % Immature Gran # Nucleated RBCs # POC Glucose 370 H 322 H Urine Color Yellow Urine Appearance Slightly hazy Urine pH 5.0 Ur Specific Orient 1.013 Urine Protein Negative Urine Glucose (UA) 50 Urine Ketones Negative Urine Blood Small Urine Nitrate Negative Urine Bilirubin Negative Urine Urobilinogen < 2.0 H Urine Leukocytes Negative Urine WBC 1 Ur Squamous Epith Cells Occasional Urine Mucus Occasional Ur Culture Indicated? Not indicated DS: Provider Date of admission: 09/03/16 18:35 Primary care physician: . No PCP Attending physician on admission: Andreas Bonilla MD Consults: 09/03/16 19:12 Consult to Wound Care - [place] [CONS] Routine Reason for Wound Care: Wound Care Management 09/03/16 20:49 Consult to Pharmacy [CONS] Routine Reason for Pharmacy Consult: Adjust Meds Renal Funct 09/03/16 22:16 Consult to Dietitian [CONS] Routine Reason for Dietitian: Dietary Consult 09/04/16 06:59 Consult to Physician [CONS] Routine Comment: vomiting, diarhea Consulting Provider: Moreno Duran Consult to Specialist Group: Gastroenterology Person Notified: BHARTI Date Notified: 09/04/16 Time Notified: 08:00 09/05/16 10:08 Consult to Physician [CONS] Routine Comment: left heel ulcer, sacral ulcer w drainage Consulting Provider: Laz Botello Consulting Provider Notified: Yes When should Consulting Provider be notified: Now Consult to Specialist Group: Surgery When should Consulting Provider be notified: Now Person Notified: dr. botello Date Notified: 09/05/16 Time Notified: 10:32 09/06/16 09:30 Consult to Physician [CONS] Routine Comment: eval urinary retention, can see tomorrow am Consulting Provider: Delgado Salgado 09/06/16 12:56 Consult to Physician [CONS] Routine Comment: consult Wednesday am Consulting Provider: Delgado Gallo Consult to Specialist Group: Surgery Person Notified: ROHAN Date Notified: 09/07/16 Time Notified: 09:10 09/08/16 12:41 Consult to Dietitian [CONS] Routine Reason for Dietitian: Dietary Consult Consult Comment: Calorie count 09/10/16 10:04 Consult to Dietitian [CONS] Routine Reason for Dietitian: TF-Initiate/Manage Consult Comment: Tube feeding recommendations Discharging clinician: Tono Thompson MD
--- NOTE | 2016-09-14 10:25 | Interventional Radiology Rpt ---
IR PICC line insertion, US guide vascular access IR PICC Placement Peripherally-inserted central catheter (PICC) placement using ultrasound and fluoroscopic guidance Ultrasound of the left upper extremity Clinical Information: 71-year-old male with multiple medical problems including decubitus and lower extremity skin ulcerations. PICC line is requested for long-term intravenous antibiotic administration. Physician: Dr. Molina Procedure: The patient was advised of the benefits, risks, and alternatives of the procedure and informed consent was obtained. A time out was performed with verification of the patient's name, MRN, site of procedure, and type of procedure to be performed. The patient was positioned in the supine position on the angiographic table. The site was prepped and draped in the usual sterile fashion. Additionally, maximal sterile barrier technique was employed for the procedure. A cannon fire direction specialist radiograph reveals left chest pacemaker device and wire leads. Ultrasound examination of the left arm demonstrates patent and compressible brachial and basilic veins. The left arm was prepped and draped in the usual sterile fashion. The left basilic vein was again identified. Using ultrasound guidance, a 21 gauge needle was used to access the vein. A permanent ultrasound recording of vascular access was obtained for the patient's record. A 0.018" cope wire was then advanced into the vein. The needle was exchanged for a 5 Colombian peel-away sheath. A 5 Colombian double lumen Bard Solo PICC catheter was measured and trimmed to the 49 cm yolis. The PICC line was advanced through the sheath and into the central circulation. The catheter tip was positioned at the cavo-atrial junction. The peel-away sheath was then removed. At the conclusion of the procedure, the catheter was secured in place using a Stat-Lock device. A sterile dressing was applied. The lumens aspirate and flush freely. The catheter is ready for immediate use. The patient tolerated the procedure well and was returned to the PRU in stable condition. EBL: < 5 mL. Complications: None. Fluoroscopy time: 0.2 minutes Conclusion: Successful placement of a 5 Colombian double lumen Bard Solo power injectable PICC via the left basilic vein. The catheter is ready for immediate use. PROCEDURE INTERPRETED AT [facility] DEPARTMENT OF RADIOLOGY Final Report Signed by: Lázaro Molina
[2016-09-14] MEDS: PANTOPRAZOLE 40 MG VIAL IV SCH (10:59)
[2016-09-14] MEDS: CIPROFLOXACIN INJ 400 MG in PREMIX 1 EACH IV SCH (10:59)
[2016-09-14] MEDS: TAMSULOSIN 0.4 MG CAPSULE PO SCH ×2 (11:00)
[2016-09-14] MEDS: DESITIN 4OZ/NYSTATIN 15 GRAM MIXTURE PASTE TOP SCH (11:00)
[2016-09-14] MEDS: FINASTERIDE 5 MG TABLET PO SCH (11:00)
[2016-09-14] MEDS: APIXABAN 5 MG TABLET PO SCH (11:00)
[2016-09-14] MEDS: COLLAGENASE OINT 30 GM TUBE TOP SCH (11:02)
[2016-09-14] MEDS: SODIUM HYPOCHLORITE 0.25% IRRIG 473 ML BOTTLE TOP SCH (11:03)
[2016-09-14 12:52] VITALS: BP 100/57
[2016-09-14] MEDS: BACITRACIN OINT 0.9 GM PACK TOP SCH (14:00)
--- NOTE | 2016-09-14 15:14 | Nephrology Progress Note ---
Nephrology - PN: Subj Interval history: Patient open his eyes and said hello upon migrating him. But after that was noninteractive Physical exam general the patient's in no acute distress, heart is regular rate and rhythm, lungs are clear to auscultation anteriorly, abdomen is soft with positive bowel sounds, extremities reveal no pitting edema Assessment/plan 1. Acute renal failure-this patient's creatinines improved back to his baseline at 2.6 mg/dL. The patient initially of presented with volume depletion 2. Dementia 3. Diabetes mellitus is controlled 4. Dehydration-this is resolved, the patient has a feeding tube in place now. Exam (PN)-Nephrology - Vital Signs Vital signs: Period Temp Pulse Resp BP Sys/Wick Pulse Ox Last 24 Hr 97.8 F-99.8 F 84-94 16-20 90-119/49-72 94-100 - Lab 09/14/16 06:10 09/13/16 05:34 Most recent lab results Calcium 8.3 MG/DL (8.5-10.1) L 09/13/16 05:34 Phosphorus 2.5 MG/DL (2.5-4.9) 09/11/16 05:29 Magnesium 1.6 MG/DL (1.8-2.4) L 09/11/16 05:29 Assessment and Plan (1) Acute on chronic renal failure Status: Acute Assessment and plan: I agree with IV fluids as ordered. I mentioned to the patient's that a PEG feeding tube may ultimately be required. Current Visit: Yes (2) History of hypertension Status: Acute Assessment and plan: This patient has been having decreased blood pressure lately per the patient's , she has been holding his Diovan on an diuretic Current Visit: Yes (3) Dehydration Status: Resolved Current Visit: Yes (4) Hypokalemia Status: Resolved Assessment and plan: Continue IV replacement of potassium Current Visit: Yes (5) Chronic hepatitis B Status: Acute Assessment and plan: Patient is on chronic treatment for this with Baraclude Current Visit: No (6) Gastroparesis Status: Acute Current Visit: No (7) Diabetes mellitus Status: Chronic Current Visit: No Qualifiers: Diabetes mellitus type: type 2 (8) Dementia Status: Acute Assessment and plan: This patient's had a fairly rapid decline in his mental status over the past 8 months or so. He apparently saw a neurologist in [place] related to the dementia is seen in pro-ballplayer's. I'm not sure if the Reglan would cause such a prolonged dementia after a 10 day exposure as he had 6-8 months ago. Current Visit: Yes (9) Weight loss Status: Acute Assessment and plan: With his history of colon cancer and oriented that he may have a recurrence of this causing some weight loss. However this may be more result of his progressive dementia. I'll review his previous hospitalization for test that may have screened for this. Current Visit: Yes Specialty Discharge - Follow Up or Referrals Follow up with: Delgado Gallo MD [Physician] - (We will follow at [facility])
== END 2016-09-14 15:49 | DRG 673 ==
LOC: EDUNIT# → N.ED 15:21 → SUATTDRO 18:35 → N.EDINP 18:35 → N.TELES 20:04 → N.5E 09-09 12:48
PROVIDERS: ADMIT Internal Medicine; ATTEND Internal Medicine
PROC: EGDWPEG (ICD-10-PCS; 2016-09-10 08:05)